=== PATIENT | female | born 1950 | race Caucasian/White ===

== ENCOUNTER → 2019-05-04 04:00 | Outpatient (REF) | payer MEDICARE, SELFPAY ==
[2019-05-04 10:02] LABS: Hematocrit 38.3 % (37-47); Hemoglobin 11.1 g/dL (12.0-15.0); Mean Corpuscular Hgb 24.4 pg (27.0-32.0); Mean Corpuscular Volume 84.2 fL (81-99); Mean Platelet Vol. 9.3 fl (6.2-12.0); Platelet Count 270 K/mm3 (150-450); RBC Distribution Width CV 14.4 % (11.6-14.6); Red Blood Count 4.55 M/mm3 (4.2-5.4); White Blood Count 9.8 K/mm3 (4.4-11.0)
[2019-05-04 10:55] LABS: BUN 22 mg/dL (7-18); Creatinine, Serum 0.58 mg/dL (0.55-1.02); Glucose 66 mg/dL (74-106)
[2019-05-04 10:56] LABS: Anion Gap 0 (5-15); BUN/Creat Ratio 38.2 RATIO (10-20); Chloride 105 mmol/L (98-107); EST Glomerular Filtration Rate 110 mL/min (>60); Est Glom Filt Rate - Afr Amer 134 mL/min (>60); Potassium 3.8 mmol/L (3.5-5.1); Sodium Level 144 mmol/L (136-145)
== END ==
LOC: OLS.ACW400 04:00
PROVIDERS: Visit Provider Family Medicine
DX: J96.22 Acute and chronic respiratory failure with hypercapnia (principal)
CPT/HCPCS: 36415; 80048; 85027

== ENCOUNTER → 2019-05-06 05:00 | Outpatient (REF) | payer MEDICARE, SELFPAY ==
[2019-05-06 08:02] LABS: Hematocrit 43.4 % (37-47); Hemoglobin 12.4 g/dL (12.0-15.0); Mean Corp Hgb Conc 28.6 g/dL (32-36); Mean Corpuscular Hgb 24.3 pg (27.0-32.0); Mean Corpuscular Volume 84.9 fL (81-99); Mean Platelet Vol. 9.5 fl (6.2-12.0); Platelet Count 303 K/mm3 (150-450); RBC Distribution Width CV 14.7 % (11.6-14.6); RBC Distribution Width SD 45.1 fl (35.1-43.9); Red Blood Count 5.11 M/mm3 (4.2-5.4); White Blood Count 9.8 K/mm3 (4.4-11.0)
[2019-05-06 08:29] LABS: Valproic Acid (Depakene) Level 23 ug/mL (50-100)
[2019-05-06 08:31] LABS: Hemoglobin A1c 7.4 % (4.2-6.3)
[2019-05-06 08:48] LABS: Vitamin B12 700 pg/mL (211-911); Vitamin D,25 Hydroxy 33.5 ng/mL (29.95-100.01)
[2019-05-06 08:51] LABS: ALB/GLOB Ratio 0.6 RATIO (0.9-2.4); AST(SGOT) 18 U/L (15-37); Alanine Aminotransfer ALT/SGPT 46 U/L (13-56); Albumin, Serum 2.5 g/dL (3.2-5.0); Alkaline Phosphatase 90 U/L (45-117); Anion Gap 4 (5-15); BUN 21 mg/dL (7-18); BUN/Creat Ratio 31.8 RATIO (10-20); Calcium,Total 8.8 mg/dL (8.5-10.1); Chloride 102 mmol/L (98-107); Cholesterol 159 mg/dL (200); Creatinine, Serum 0.66 mg/dL (0.55-1.02); EST Glomerular Filtration Rate 94 mL/min (>60); Est Glom Filt Rate - Afr Amer 114 mL/min (>60); Globulin 4.2 g/dL (2.2-4.2); Glucose 75 mg/dL (74-106); High Density Lipoprotein 37 mg/dL; Potassium 4.2 mmol/L (3.5-5.1); Protein, Total 6.7 g/dL (6.4-8.2); Sodium Level 143 mmol/L (136-145); Thyroid Stim Hormone (TSH) 2.16 uIU/mL (0.358-3.74); Triglycerides 207 mg/dL; Very Low Density Lipoprotein 41 mg/dL (5-40)
== END ==
LOC: OLS.ACW400 05:00
PROVIDERS: Visit Provider Family Medicine
DX: J44.1 Chronic obstructive pulmonary disease with (acute) exacerbation (principal); J96.22 Acute and chronic respiratory failure with hypercapnia; J96.21 Acute and chronic respiratory failure with hypoxia; E11.9 Type 2 diabetes mellitus without complications; E55.9 Vitamin D deficiency, unspecified
CPT/HCPCS: 36415; 80053; 80061; 80164; 82306; 82607; 83036; 84443; 85027

== ENCOUNTER → 2019-06-25 05:00 | Outpatient (REF) | payer MEDICARE, SELFPAY ==
[2019-06-25 08:59] LABS: Hematocrit 41.9 % (37-47); Hemoglobin 12.1 g/dL (12.0-15.0); Mean Corp Hgb Conc 28.9 g/dL (32-36); Mean Corpuscular Volume 83.1 fL (81-99); Mean Platelet Vol. 9.6 fl (6.2-12.0); Platelet Count 292 K/mm3 (150-450); RBC Distribution Width CV 16.6 % (11.6-14.6); RBC Distribution Width SD 49.6 fl (35.1-43.9); Red Blood Count 5.04 M/mm3 (4.2-5.4); White Blood Count 8.6 K/mm3 (4.4-11.0)
[2019-06-25 09:11] LABS: Anion Gap 4 (5-15); BUN 20 mg/dL (7-18); BUN/Creat Ratio 28.4 RATIO (10-20); Calcium,Total 9.3 mg/dL (8.5-10.1); Chloride 104 mmol/L (98-107); EST Glomerular Filtration Rate 88 mL/min (>60); Est Glom Filt Rate - Afr Amer 106 mL/min (>60); Glucose 113 mg/dL (74-106); Potassium 4.3 mmol/L (3.5-5.1); Sodium Level 143 mmol/L (136-145)
[2019-06-25 09:24] LABS: Hemoglobin A1c 7.2 % (4.2-6.3)
[2019-06-25 09:25] LABS: Valproic Acid (Depakene) Level 27 ug/mL (50-100)
[2019-06-25 10:21] LABS: Vitamin B12 801 pg/mL (211-911)
[2019-06-27 08:06] LABS: Vitamin D,25 Hydroxy 46.1 ng/mL
== END ==
LOC: OLS.ACW400 05:00
PROVIDERS: Visit Provider Family Medicine
DX: E11.9 Type 2 diabetes mellitus without complications (principal); F31.9 Bipolar disorder, unspecified; D51.9 Vitamin B12 deficiency anemia, unspecified; E55.9 Vitamin D deficiency, unspecified
CPT/HCPCS: 36415; 80048; 80164; 82306; 82607; 83036; 85027

== ENCOUNTER → 2019-09-25 05:00 | Outpatient (REF) | payer MEDICARE, SELFPAY ==
[2019-09-25 10:21] LABS: Hematocrit 43.6 % (37-47); Hemoglobin 13.3 g/dL (12.0-15.0); Mean Corp Hgb Conc 30.5 g/dL (32-36); Mean Corpuscular Hgb 26.9 pg (27.0-32.0); Mean Corpuscular Volume 88.3 fL (81-99); Mean Platelet Vol. 9.2 fl (6.2-12.0); Platelet Count 260 K/mm3 (150-450); RBC Distribution Width CV 14.5 % (11.6-14.6); RBC Distribution Width SD 46.4 fl (35.1-43.9); Red Blood Count 4.94 M/mm3 (4.2-5.4); White Blood Count 8.1 K/mm3 (4.4-11.0)
[2019-09-25 10:23] LABS: Valproic Acid (Depakene) Level 35 ug/mL (50-100)
[2019-09-25 10:34] LABS: ALB/GLOB Ratio 0.7 RATIO (0.9-2.4); AST(SGOT) 14 U/L (15-37); Alanine Aminotransfer ALT/SGPT 21 U/L (13-56); Alkaline Phosphatase 116 U/L (45-117); Anion Gap 7 (5-15); BUN 17 mg/dL (7-18); BUN/Creat Ratio 23.6 RATIO (10-20); Calcium,Total 9.2 mg/dL (8.5-10.1); Chloride 100 mmol/L (98-107); Creatinine, Serum 0.72 mg/dL (0.55-1.02); EST Glomerular Filtration Rate 85 mL/min (>60); Est Glom Filt Rate - Afr Amer 103 mL/min (>60); Globulin 4.2 g/dL (2.2-4.2); Glucose 101 mg/dL (74-106); Potassium 4.1 mmol/L (3.5-5.1); Protein, Total 7.2 g/dL (6.4-8.2); Sodium Level 143 mmol/L (136-145)
[2019-09-25 10:35] LABS: Vitamin B12 711 pg/mL (211-911); Vitamin D,25 Hydroxy 37.5 ng/mL
[2019-09-25 10:40] LABS: Hemoglobin A1c 6.3 % (3.8-5.6)
== END ==
LOC: OLS.ACW100 05:00
PROVIDERS: Referring Provider Family Medicine; Visit Provider Family Medicine
DX: J44.1 Chronic obstructive pulmonary disease with (acute) exacerbation (principal); J96.22 Acute and chronic respiratory failure with hypercapnia; J96.21 Acute and chronic respiratory failure with hypoxia; E11.9 Type 2 diabetes mellitus without complications; I11.0 Hypertensive heart disease with heart failure; I50.30 Unspecified diastolic (congestive) heart failure; I48.0 Paroxysmal atrial fibrillation; E78.5 Hyperlipidemia, unspecified; E66.9 Obesity, unspecified; F41.9 Anxiety disorder, unspecified; F32.9 Major depressive disorder, single episode, unspecified; D51.9 Vitamin B12 deficiency anemia, unspecified; E55.9 Vitamin D deficiency, unspecified; G89.4 Chronic pain syndrome; G47.00 Insomnia, unspecified; K21.9 Gastro-esophageal reflux disease without esophagitis; I48.91 Unspecified atrial fibrillation; E87.2 Acidosis; E87.6 Hypokalemia; Z99.81 Dependence on supplemental oxygen
CPT/HCPCS: 36415; 80053; 80164; 82306; 82607; 83036; 85027

== ENCOUNTER → 2019-12-25 07:30 | Outpatient (REF) | payer MEDICARE, MEDICAID, SELFPAY ==
[2019-12-25 10:15] LABS: Hematocrit 39.1 % (37-47); Hemoglobin 12.1 g/dL (12.0-15.0); Mean Corp Hgb Conc 30.9 g/dL (32-36); Mean Corpuscular Hgb 27.3 pg (27.0-32.0); Mean Corpuscular Volume 88.3 fL (81-99); Mean Platelet Vol. 9.2 fl (6.2-12.0); Platelet Count 215 K/mm3 (150-450); RBC Distribution Width CV 14.5 % (11.6-14.6); RBC Distribution Width SD 45.8 fl (35.1-43.9); Red Blood Count 4.43 M/mm3 (4.2-5.4)
[2019-12-25 10:21] LABS: Valproic Acid (Depakene) Level 36 ug/mL (50-100)
[2019-12-25 10:31] LABS: ALB/GLOB Ratio 0.8 RATIO (0.9-2.4); AST(SGOT) 13 U/L (15-37); Alanine Aminotransfer ALT/SGPT 19 U/L (13-56); Albumin, Serum 2.8 g/dL (3.2-5.0); Alkaline Phosphatase 102 U/L (45-117); Anion Gap 3 (5-15); BUN 19 mg/dL (7-18); BUN/Creat Ratio 26.5 RATIO (10-20); Calcium,Total 9.1 mg/dL (8.5-10.1); Chloride 101 mmol/L (98-107); Cholesterol 182 mg/dL (200); Creatinine, Serum 0.72 mg/dL (0.55-1.02); EST Glomerular Filtration Rate 85 mL/min (>60); Est Glom Filt Rate - Afr Amer 103 mL/min (>60); Globulin 3.7 g/dL (2.2-4.2); Glucose 100 mg/dL (74-106); High Density Lipoprotein 36 mg/dL; Protein, Total 6.5 g/dL (6.4-8.2); Sodium Level 140 mmol/L (136-145); Thyroid Stim Hormone (TSH) 3.09 uIU/mL (0.358-3.74); Triglycerides 230 mg/dL; Very Low Density Lipoprotein 46 mg/dL (5-40); Vitamin B12 490 pg/mL (211-911); Vitamin D,25 Hydroxy 37.3 ng/mL
[2019-12-25 10:56] LABS: Hemoglobin A1c 6.4 % (3.8-5.6)
== END ==
LOC: OLS.ACW100 07:30
PROVIDERS: Visit Provider Family Medicine
DX: E55.9 Vitamin D deficiency, unspecified (principal); E78.5 Hyperlipidemia, unspecified; E66.9 Obesity, unspecified; F41.9 Anxiety disorder, unspecified; I10 Essential (primary) hypertension; D51.9 Vitamin B12 deficiency anemia, unspecified; F32.9 Major depressive disorder, single episode, unspecified; E11.9 Type 2 diabetes mellitus without complications
CPT/HCPCS: 36415; 80053; 80061; 80164; 82306; 82607; 83036; 84443; 85027

== ENCOUNTER → 2020-01-29 10:38 | Outpatient (REF) | payer MEDICARE, MEDICAID, SELFPAY | LOC: OLS.ACW100 10:38 | PROVIDERS: Visit Provider Family Medicine | DX: Z03.818 Encounter for observation for suspected exposure to other biological agents ruled out (principal) | CPT/HCPCS: 87635; U0003 ==

== ENCOUNTER → 2020-03-11 05:00 | Outpatient (REF) | payer MEDICARE, MEDICAID, SELFPAY ==
[2020-03-11 09:53] LABS: Uric Acid 7.6 mg/dL (2.6-6.0)
== END ==
LOC: OLS.ACW100 05:00
PROVIDERS: Referring Provider Family Medicine; Visit Provider Family Medicine
DX: U07.1 COVID-19 (principal); J44.1 Chronic obstructive pulmonary disease with (acute) exacerbation; J96.22 Acute and chronic respiratory failure with hypercapnia; J96.21 Acute and chronic respiratory failure with hypoxia
CPT/HCPCS: 36415; 84550

== ENCOUNTER → 2020-06-13 05:00 | Outpatient (REF) | payer MEDICARE, MEDICAID, SELFPAY ==
[2020-06-13 08:18] LABS: Valproic Acid (Depakene) Level 17 ug/mL (50-100)
[2020-06-13 08:25] LABS: Hemoglobin A1c 6.8 % (3.8-5.6)
== END ==
LOC: OLS.ACW100 05:00
PROVIDERS: Referring Provider Family Medicine; Visit Provider Family Medicine
DX: J44.1 Chronic obstructive pulmonary disease with (acute) exacerbation (principal); J96.22 Acute and chronic respiratory failure with hypercapnia; J96.21 Acute and chronic respiratory failure with hypoxia; E11.9 Type 2 diabetes mellitus without complications
CPT/HCPCS: 36415; 80164; 83036

== ENCOUNTER → 2020-06-24 07:45 | Outpatient (REF) | payer MEDICARE, MEDICAID, SELFPAY ==
[2020-06-24 09:32] LABS: Mean Corp Hgb Conc 31.6 g/dL (32-36); Mean Corpuscular Hgb 27.1 pg (27.0-32.0); Mean Platelet Vol. 8.8 fl (6.2-12.0); Platelet Count 220 K/mm3 (150-450); RBC Distribution Width CV 15.1 % (11.6-14.6); RBC Distribution Width SD 46.7 fl (35.1-43.9); Red Blood Count 4.42 M/mm3 (4.2-5.4); White Blood Count 8.6 K/mm3 (4.4-11.0)
[2020-06-24 09:45] LABS: ALB/GLOB Ratio 0.7 RATIO (0.9-2.4); AST(SGOT) 13 U/L (15-37); Alanine Aminotransfer ALT/SGPT 22 U/L (13-56); Albumin, Serum 2.9 g/dL (3.2-5.0); Alkaline Phosphatase 116 U/L (45-117); Anion Gap 6 (5-15); BUN 17 mg/dL (7-18); Calcium,Total 8.9 mg/dL (8.5-10.1); Chloride 104 mmol/L (98-107); Creatinine, Serum 0.74 mg/dL (0.55-1.02); EST Glomerular Filtration Rate 82 mL/min (>60); Est Glom Filt Rate - Afr Amer 100 mL/min (>60); Glucose 131 mg/dL (74-106); Potassium 4.2 mmol/L (3.5-5.1); Protein, Total 6.9 g/dL (6.4-8.2); Sodium Level 143 mmol/L (136-145)
[2020-06-24 09:46] LABS: Valproic Acid (Depakene) Level 14 ug/mL (50-100); Vitamin B12 922 pg/mL (211-911); Vitamin D,25 Hydroxy 49.4 ng/mL
[2020-06-24 10:06] LABS: Hemoglobin A1c 6.8 % (3.8-5.6)
== END ==
LOC: OLS.ACW100 07:45
PROVIDERS: Visit Provider Family Medicine
DX: J44.1 Chronic obstructive pulmonary disease with (acute) exacerbation (principal); J96.22 Acute and chronic respiratory failure with hypercapnia; J96.21 Acute and chronic respiratory failure with hypoxia; E11.9 Type 2 diabetes mellitus without complications; F31.9 Bipolar disorder, unspecified; D51.9 Vitamin B12 deficiency anemia, unspecified
CPT/HCPCS: 36415; 80053; 80164; 82306; 82607; 83036; 85027

== ENCOUNTER → 2020-09-26 04:00 | Outpatient (REF) | payer MEDICARE, MEDICAID, SELFPAY ==
[2020-09-26 09:03] LABS: Hematocrit 41.4 % (37-47); Hemoglobin 12.4 g/dL (12.0-15.0); Mean Corpuscular Hgb 26.2 pg (27.0-32.0); Mean Corpuscular Volume 87.3 fL (81-99); Mean Platelet Vol. 9.5 fl (6.2-12.0); Platelet Count 236 K/mm3 (150-450); RBC Distribution Width CV 14.7 % (11.6-14.6); RBC Distribution Width SD 46.9 fl (35.1-43.9); Red Blood Count 4.74 M/mm3 (4.2-5.4); White Blood Count 8.8 K/mm3 (4.4-11.0)
[2020-09-26 09:20] LABS: Vitamin B12 1417 pg/mL (211-911); Vitamin D,25 Hydroxy 52.4 ng/mL
[2020-09-26 09:24] LABS: ALB/GLOB Ratio 0.7 RATIO (0.9-2.4); AST(SGOT) 9 U/L (15-37); Alanine Aminotransfer ALT/SGPT 23 U/L (13-56); Albumin, Serum 2.7 g/dL (3.2-5.0); Alkaline Phosphatase 123 U/L (45-117); Anion Gap 4 (5-15); BUN 18 mg/dL (7-18); BUN/Creat Ratio 22.9 RATIO (10-20); Calcium,Total 9.1 mg/dL (8.5-10.1); Chloride 104 mmol/L (98-107); Creatinine, Serum 0.78 mg/dL (0.55-1.02); EST Glomerular Filtration Rate 77 mL/min (>60); Est Glom Filt Rate - Afr Amer 93 mL/min (>60); Globulin 3.8 g/dL (2.2-4.2); Glucose 124 mg/dL (74-106); Potassium 4.1 mmol/L (3.5-5.1); Protein, Total 6.5 g/dL (6.4-8.2); Sodium Level 144 mmol/L (136-145)
[2020-09-26 09:29] LABS: Valproic Acid (Depakene) Level 18 ug/mL (50-100)
[2020-09-26 09:35] LABS: Hemoglobin A1c 7.1 % (3.8-5.6)
== END ==
LOC: OLS.ACW100 04:00
PROVIDERS: Referring Provider Family Medicine; Visit Provider Family Medicine
DX: J44.1 Chronic obstructive pulmonary disease with (acute) exacerbation (principal); J96.22 Acute and chronic respiratory failure with hypercapnia; J96.21 Acute and chronic respiratory failure with hypoxia; E11.9 Type 2 diabetes mellitus without complications; E55.9 Vitamin D deficiency, unspecified
CPT/HCPCS: 36415; 80053; 80164; 82306; 82607; 83036; 85027

== ENCOUNTER → 2020-10-13 05:00 | Outpatient (REF) | payer MEDICARE, MEDICAID, SELFPAY ==
[2020-10-13 09:15] LABS: Iron 42 ug/dL (50-170); Iron Binding Capacity,Total 294 ug/dL (250-450)
== END ==
LOC: OLS.ACW100 05:00
PROVIDERS: Referring Provider Family Medicine; Visit Provider Family Medicine
DX: J44.1 Chronic obstructive pulmonary disease with (acute) exacerbation (principal); J96.22 Acute and chronic respiratory failure with hypercapnia; J96.21 Acute and chronic respiratory failure with hypoxia; E11.9 Type 2 diabetes mellitus without complications
CPT/HCPCS: 36415; 83540; 83550

== ENCOUNTER → 2020-10-14 10:00 | Outpatient (REF) | payer MEDICARE, MEDICAID, SELFPAY | LOC: OLS.ACW100 10:00 | PROVIDERS: Referring Provider Family Medicine; Visit Provider Family Medicine | DX: J44.1 Chronic obstructive pulmonary disease with (acute) exacerbation (principal); J96.22 Acute and chronic respiratory failure with hypercapnia; J96.21 Acute and chronic respiratory failure with hypoxia; E11.9 Type 2 diabetes mellitus without complications | CPT/HCPCS: 82274 ==

== ENCOUNTER → 2020-12-14 05:00 | Outpatient (REF) | payer MEDICARE, MEDICAID, SELFPAY ==
[2020-12-14 09:30] LABS: Cholesterol 164 mg/dL (200); High Density Lipoprotein 35 mg/dL; Triglycerides 207 mg/dL; Very Low Density Lipoprotein 41 mg/dL (5-40)
[2020-12-14 09:33] LABS: Vitamin B12 1496 pg/mL (211-911); Vitamin D,25 Hydroxy 49.3 ng/mL
[2020-12-14 09:38] LABS: Valproic Acid (Depakene) Level 18 ug/mL (50-100)
[2020-12-14 09:50] LABS: Hemoglobin A1c 7.2 % (3.8-5.6)
== END ==
LOC: OLS.ACW100 05:00
PROVIDERS: Visit Provider Family Medicine
DX: E78.5 Hyperlipidemia, unspecified (principal); E11.9 Type 2 diabetes mellitus without complications; I11.0 Hypertensive heart disease with heart failure; I50.30 Unspecified diastolic (congestive) heart failure; F31.9 Bipolar disorder, unspecified; E55.9 Vitamin D deficiency, unspecified
CPT/HCPCS: 36415; 80061; 80164; 82306; 82607; 83036

== ENCOUNTER → 2020-12-26 05:00 | Outpatient (REF) | payer MEDICARE, MEDICAID, SELFPAY ==
[2020-12-26 08:52] LABS: Hematocrit 39.4 % (37-47); Hemoglobin 11.7 g/dL (12.0-15.0); Mean Corp Hgb Conc 29.7 g/dL (32-36); Mean Corpuscular Hgb 26.1 pg (27.0-32.0); Mean Corpuscular Volume 87.9 fL (81-99); Mean Platelet Vol. 9.2 fl (6.2-12.0); Platelet Count 222 K/mm3 (150-450); RBC Distribution Width CV 15.7 % (11.6-14.6); RBC Distribution Width SD 49.9 fl (35.1-43.9); Red Blood Count 4.48 M/mm3 (4.2-5.4); White Blood Count 8.6 K/mm3 (4.4-11.0)
[2020-12-26 09:09] LABS: ALB/GLOB Ratio 0.6 RATIO (0.9-2.4); AST(SGOT) 14 U/L (15-37); Alanine Aminotransfer ALT/SGPT 24 U/L (13-56); Albumin, Serum 2.6 g/dL (3.2-5.0); Alkaline Phosphatase 110 U/L (45-117); Anion Gap 4 (5-15); BUN 18 mg/dL (7-18); BUN/Creat Ratio 27.1 RATIO (10-20); Calcium,Total 9.1 mg/dL (8.5-10.1); Chloride 101 mmol/L (98-107); Creatinine, Serum 0.66 mg/dL (0.55-1.02); EST Glomerular Filtration Rate 93 mL/min (>60); Est Glom Filt Rate - Afr Amer 113 mL/min (>60); Globulin 4.1 g/dL (2.2-4.2); Glucose 152 mg/dL (74-106); Protein, Total 6.7 g/dL (6.4-8.2); Sodium Level 142 mmol/L (136-145)
[2020-12-26 09:15] LABS: Hemoglobin A1c 7.3 % (3.8-5.6)
[2020-12-26 09:19] LABS: Valproic Acid (Depakene) Level 15 ug/mL (50-100)
[2020-12-26 09:23] LABS: Vitamin B12 969 pg/mL (211-911); Vitamin D,25 Hydroxy 57.1 ng/mL
== END ==
LOC: OLS.ACW100 05:00
PROVIDERS: Visit Provider Family Medicine
DX: J44.1 Chronic obstructive pulmonary disease with (acute) exacerbation (principal); J96.21 Acute and chronic respiratory failure with hypoxia; J96.22 Acute and chronic respiratory failure with hypercapnia; E11.9 Type 2 diabetes mellitus without complications; E55.9 Vitamin D deficiency, unspecified
CPT/HCPCS: 36415; 80053; 80164; 82306; 82607; 83036; 85027

== ENCOUNTER → 2021-02-09 05:00 | Outpatient (REF) | payer MEDICARE, MEDICAID, SELFPAY ==
[2021-02-09 09:04] LABS: BNP,B-Type NATRIURETIC PEPTIDE 6.6 pg/mL (0-100)
== END ==
LOC: OLS.ACW100 05:00
PROVIDERS: Visit Provider Family Medicine
DX: J44.1 Chronic obstructive pulmonary disease with (acute) exacerbation (principal); J96.22 Acute and chronic respiratory failure with hypercapnia; J96.21 Acute and chronic respiratory failure with hypoxia; E11.9 Type 2 diabetes mellitus without complications; I48.20 Chronic atrial fibrillation, unspecified; I50.9 Heart failure, unspecified
CPT/HCPCS: 36415; 83880

== ENCOUNTER → 2021-02-13 05:00 | Outpatient (REF) | payer MEDICARE, MEDICAID, SELFPAY ==
[2021-02-13 11:21] LABS: Valproic Acid (Depakene) Level 15 ug/mL (50-100)
== END ==
LOC: OLS.ACW100 05:00
PROVIDERS: Visit Provider Family Medicine
DX: E87.6 Hypokalemia (principal); I10 Essential (primary) hypertension; E11.9 Type 2 diabetes mellitus without complications; D51.9 Vitamin B12 deficiency anemia, unspecified; E55.9 Vitamin D deficiency, unspecified; M54.50 Low back pain, unspecified
CPT/HCPCS: 36415; 80164

== ENCOUNTER → 2021-02-22 05:00 | Outpatient (REF) | payer MEDICARE, MEDICAID, SELFPAY ==
[2021-02-22 08:03] LABS: Anion Gap 3 (5-15); BUN 17 mg/dL (7-18); BUN/Creat Ratio 21.5 RATIO (10-20); Calcium,Total 9.3 mg/dL (8.5-10.1); Chloride 100 mmol/L (98-107); Creatinine, Serum 0.79 mg/dL (0.55-1.02); EST Glomerular Filtration Rate 76 mL/min (>60); Est Glom Filt Rate - Afr Amer 92 mL/min (>60); Glucose 168 mg/dL (74-106); Potassium 4.1 mmol/L (3.5-5.1); Sodium Level 140 mmol/L (136-145)
== END ==
LOC: OLS.ACW100 05:00
PROVIDERS: Visit Provider Family Medicine
DX: I48.91 Unspecified atrial fibrillation (principal); I50.9 Heart failure, unspecified
CPT/HCPCS: 36415; 80048

== ENCOUNTER → 2021-03-27 04:00 | Outpatient (REF) | payer MEDICARE, MEDICAID, SELFPAY ==
[2021-03-27 07:58] LABS: Hematocrit 41.6 % (37-47); Hemoglobin 12.1 g/dL (12.0-15.0); Mean Corp Hgb Conc 29.1 g/dL (32-36); Mean Corpuscular Hgb 24.9 pg (27.0-32.0); Mean Corpuscular Volume 85.8 fL (81-99); Mean Platelet Vol. 9.7 fl (6.2-12.0); Platelet Count 198 K/mm3 (150-450); RBC Distribution Width CV 15.4 % (11.6-14.6); RBC Distribution Width SD 48.2 fl (35.1-43.9); Red Blood Count 4.85 M/mm3 (4.2-5.4); White Blood Count 8.4 K/mm3 (4.4-11.0)
[2021-03-27 08:11] LABS: Valproic Acid (Depakene) Level 18 ug/mL (50-100)
[2021-03-27 08:21] LABS: Hemoglobin A1c 7.9 % (3.8-5.6)
[2021-03-27 08:33] LABS: ALB/GLOB Ratio 0.6 RATIO (0.9-2.4); AST(SGOT) 15 U/L (15-37); Alanine Aminotransfer ALT/SGPT 24 U/L (13-56); Albumin, Serum 2.6 g/dL (3.2-5.0); Alkaline Phosphatase 107 U/L (45-117); Anion Gap 5 (5-15); BUN 16 mg/dL (7-18); BUN/Creat Ratio 18.9 RATIO (10-20); Calcium,Total 8.9 mg/dL (8.5-10.1); Chloride 103 mmol/L (98-107); Creatinine, Serum 0.85 mg/dL (0.55-1.02); EST Glomerular Filtration Rate 70 mL/min (>60); Est Glom Filt Rate - Afr Amer 85 mL/min (>60); Globulin 4.2 g/dL (2.2-4.2); Glucose 139 mg/dL (74-106); Potassium 4.2 mmol/L (3.5-5.1); Protein, Total 6.8 g/dL (6.4-8.2); Sodium Level 143 mmol/L (136-145)
[2021-03-27 09:00] LABS: Vitamin B12 622 pg/mL (211-911); Vitamin D,25 Hydroxy 42.2 ng/mL
== END ==
LOC: OLS.ACW100 04:00
PROVIDERS: Referring Provider Family Medicine; Visit Provider Family Medicine
DX: J44.1 Chronic obstructive pulmonary disease with (acute) exacerbation (principal); J96.22 Acute and chronic respiratory failure with hypercapnia; J96.21 Acute and chronic respiratory failure with hypoxia; E11.9 Type 2 diabetes mellitus without complications; E55.9 Vitamin D deficiency, unspecified; I10 Essential (primary) hypertension; G89.4 Chronic pain syndrome
CPT/HCPCS: 36415; 80053; 80164; 82306; 82607; 83036; 85027

== ENCOUNTER 2021-05-16 05:00 | Outpatient (REF) | payer MEDICARE, MEDICAID, SELFPAY ==
[2021-05-16 09:22] LABS: Valproic Acid (Depakene) Level 17 ug/mL (50-100)
== END 2021-05-16 23:59 | disposition home or self-care (01) ==
LOC: OLS.ACW100 05:00
PROVIDERS: Visit Provider Family Medicine
DX: J44.1 Chronic obstructive pulmonary disease with (acute) exacerbation (principal); J96.22 Acute and chronic respiratory failure with hypercapnia; J96.21 Acute and chronic respiratory failure with hypoxia; E11.9 Type 2 diabetes mellitus without complications
CPT/HCPCS: 36415; 80164

== ENCOUNTER 2021-06-13 05:00 | Outpatient (REF) | payer MEDICARE, MEDICAID, SELFPAY | END 2021-06-13 23:59 | disposition home or self-care (01) | LOC: OLS.ACW100 05:00 | PROVIDERS: Visit Provider Family Medicine | DX: J44.1 Chronic obstructive pulmonary disease with (acute) exacerbation (principal); J96.22 Acute and chronic respiratory failure with hypercapnia; J96.21 Acute and chronic respiratory failure with hypoxia; E11.9 Type 2 diabetes mellitus without complications | CPT/HCPCS: 36415; 83036 ==

== ENCOUNTER → 2021-06-24 | Outpatient (REF) | payer MEDICARE, MEDICAID, SELFPAY ==
[2021-06-24 09:30] LABS: Hematocrit 43.9 % (37-47); Hemoglobin 13.1 g/dL (12.0-15.0); Mean Corp Hgb Conc 29.8 g/dL (32-36); Mean Corpuscular Hgb 25.5 pg (27.0-32.0); Mean Corpuscular Volume 85.6 fL (81-99); Mean Platelet Vol. 9.3 fl (6.2-12.0); Platelet Count 278 K/mm3 (150-450); RBC Distribution Width CV 15.5 % (11.6-14.6); RBC Distribution Width SD 48.1 fl (35.1-43.9); Red Blood Count 5.13 M/mm3 (4.2-5.4); White Blood Count 11.1 K/mm3 (4.4-11.0)
[2021-06-24 09:44] LABS: Hemoglobin A1c 7.8 % (3.8-5.6)
[2021-06-24 09:46] LABS: ALB/GLOB Ratio 0.7 RATIO (0.9-2.4); AST(SGOT) 15 U/L (15-37); Alanine Aminotransfer ALT/SGPT 21 U/L (13-56); Alkaline Phosphatase 127 U/L (45-117); Anion Gap 5 (5-15); BUN 15 mg/dL (7-18); BUN/Creat Ratio 17.1 RATIO (10-20); Calcium,Total 9.9 mg/dL (8.5-10.1); Chloride 98 mmol/L (98-107); Creatinine, Serum 0.88 mg/dL (0.55-1.02); EST Glomerular Filtration Rate 68 mL/min (>60); Est Glom Filt Rate - Afr Amer 82 mL/min (>60); Globulin 4.5 g/dL (2.2-4.2); Glucose 183 mg/dL (74-106); Protein, Total 7.5 g/dL (6.4-8.2); Sodium Level 139 mmol/L (136-145)
[2021-06-24 09:48] LABS: Valproic Acid (Depakene) Level 19 ug/mL (50-100)
[2021-06-26 09:25] LABS: Vitamin B12 876 pg/mL (211-911); Vitamin D,25 Hydroxy 30.5 ng/mL
== END | disposition home or self-care (01) ==
LOC: OLS.ACW100 07:17
PROVIDERS: Referring Provider Family Medicine; Visit Provider Family Medicine
DX: I11.0 Hypertensive heart disease with heart failure (principal); J44.1 Chronic obstructive pulmonary disease with (acute) exacerbation; I50.30 Unspecified diastolic (congestive) heart failure; J96.22 Acute and chronic respiratory failure with hypercapnia; J96.21 Acute and chronic respiratory failure with hypoxia; I48.0 Paroxysmal atrial fibrillation; E11.9 Type 2 diabetes mellitus without complications; D51.9 Vitamin B12 deficiency anemia, unspecified; E55.9 Vitamin D deficiency, unspecified
CPT/HCPCS: 36415; 80053; 80164; 82306; 82607; 83036; 85027

== ENCOUNTER → 2021-08-14 | Outpatient (REF) | payer SELFPAY ==
[2021-08-14 11:11] LABS: Valproic Acid (Depakene) Level 17 ug/mL (50-100)
== END | disposition home or self-care (01) ==
LOC: OLS.ACW100 05:00
PROVIDERS: PCP Family Medicine; Referring Provider Family Medicine; Visit Provider Family Medicine
DX: J96.22 Acute and chronic respiratory failure with hypercapnia (principal); J44.1 Chronic obstructive pulmonary disease with (acute) exacerbation; J96.21 Acute and chronic respiratory failure with hypoxia; E11.9 Type 2 diabetes mellitus without complications
CPT/HCPCS: 36415; 80164

== ENCOUNTER → 2021-09-02 | Outpatient (REF) | payer MEDICARE, MEDICAID, SELFPAY ==
[2021-09-02 09:34] LABS: Microalbumin:Creatinine Ratio 11.6 mg/g CRE (<30 mg/g CRE)
== END | disposition home or self-care (01) ==
LOC: OLS.ACW100 04:00
PROVIDERS: PCP Family Medicine; Visit Provider Family Medicine
DX: J44.1 Chronic obstructive pulmonary disease with (acute) exacerbation (principal); J96.22 Acute and chronic respiratory failure with hypercapnia; J96.21 Acute and chronic respiratory failure with hypoxia; E11.9 Type 2 diabetes mellitus without complications
CPT/HCPCS: 82043; 82570

== ENCOUNTER → 2021-09-06 | Outpatient (REF) | payer MEDICARE, MEDICAID, SELFPAY | END | disposition home or self-care (01) | LOC: OLS.ACW100 07:32 | PROVIDERS: PCP Family Medicine; Referring Provider Family Medicine; Visit Provider Family Medicine | DX: J44.1 Chronic obstructive pulmonary disease with (acute) exacerbation (principal); J96.22 Acute and chronic respiratory failure with hypercapnia; J96.21 Acute and chronic respiratory failure with hypoxia; E11.9 Type 2 diabetes mellitus without complications | CPT/HCPCS: 82274 ==

== ENCOUNTER → 2021-11-08 | Outpatient (REF) | payer MEDICARE, MEDICAID, SELFPAY ==
[2021-11-08 08:41] LABS: Hematocrit 40.4 % (37-47); Hemoglobin 12.5 g/dL (12.0-15.0); Mean Corp Hgb Conc 30.9 g/dL (32-36); Mean Corpuscular Hgb 26.4 pg (27.0-32.0); Mean Corpuscular Volume 85.2 fL (81-99); Mean Platelet Vol. 9.3 fl (6.2-12.0); Platelet Count 227 K/mm3 (150-450); RBC Distribution Width CV 15.9 % (11.6-14.6); RBC Distribution Width SD 48.2 fl (35.1-43.9); Red Blood Count 4.74 M/mm3 (4.2-5.4); White Blood Count 8.6 K/mm3 (4.4-11.0)
[2021-11-08 08:56] LABS: ALB/GLOB Ratio 0.6 RATIO (0.9-2.4); AST(SGOT) 14 U/L (15-37); Alanine Aminotransfer ALT/SGPT 20 U/L (13-56); Albumin, Serum 2.6 g/dL (3.2-5.0); Alkaline Phosphatase 117 U/L (45-117); Anion Gap 4 (5-15); BUN 17 mg/dL (7-18); BUN/Creat Ratio 22.3 RATIO (10-20); Calcium,Total 9.6 mg/dL (8.5-10.1); Chloride 101 mmol/L (98-107); Creatinine, Serum 0.76 mg/dL (0.55-1.02); EST Glomerular Filtration Rate 79 mL/min (>60); Est Glom Filt Rate - Afr Amer 96 mL/min (>60); Glucose 154 mg/dL (74-106); Potassium 4.2 mmol/L (3.5-5.1); Protein, Total 6.6 g/dL (6.4-8.2); Sodium Level 139 mmol/L (136-145)
[2021-11-08 09:21] LABS: Hemoglobin A1c 7.5 % (3.8-5.6)
== END ==
LOC: OLS.ACW100 05:00
PROVIDERS: PCP Family Medicine; Visit Provider Family Medicine
DX: J44.1 Chronic obstructive pulmonary disease with (acute) exacerbation (principal); J96.22 Acute and chronic respiratory failure with hypercapnia; J96.21 Acute and chronic respiratory failure with hypoxia; E11.9 Type 2 diabetes mellitus without complications
CPT/HCPCS: 36415; 80053; 83036; 85027

== ENCOUNTER → 2021-12-14 | Outpatient (REF) | payer MEDICARE, MEDICAID, SELFPAY ==
[2021-12-14 10:20] LABS: Valproic Acid (Depakene) Level 17 ug/mL (50-100)
[2021-12-14 10:22] LABS: Vitamin B12 621 pg/mL (211-911); Vitamin D,25 Hydroxy 40.4 ng/mL
[2021-12-14 10:25] LABS: Cholesterol 156 mg/dL (200); High Density Lipoprotein 32 mg/dL; Triglycerides 206 mg/dL; Very Low Density Lipoprotein 41 mg/dL (5-40)
[2021-12-14 10:47] LABS: Hemoglobin A1c 7.5 % (3.8-5.6)
== END ==
LOC: OLS.ACW100 05:00
PROVIDERS: PCP Family Medicine; Visit Provider Family Medicine
DX: I50.30 Unspecified diastolic (congestive) heart failure (principal); I48.0 Paroxysmal atrial fibrillation; I11.0 Hypertensive heart disease with heart failure; E78.5 Hyperlipidemia, unspecified; F31.9 Bipolar disorder, unspecified; D51.9 Vitamin B12 deficiency anemia, unspecified; E55.9 Vitamin D deficiency, unspecified; J44.1 Chronic obstructive pulmonary disease with (acute) exacerbation; J96.22 Acute and chronic respiratory failure with hypercapnia; J96.21 Acute and chronic respiratory failure with hypoxia; E11.9 Type 2 diabetes mellitus without complications
CPT/HCPCS: 36415; 80061; 80164; 82306; 82607; 83036

== ENCOUNTER → 2021-12-25 | Outpatient (REF) | payer MEDICARE, MEDICAID, SELFPAY ==
[2021-12-25 08:22] LABS: Hematocrit 41.4 % (37-47); Hemoglobin 12.7 g/dL (12.0-15.0); Mean Corp Hgb Conc 30.7 g/dL (32-36); Mean Corpuscular Hgb 26.6 pg (27.0-32.0); Mean Corpuscular Volume 86.6 fL (81-99); Platelet Count 229 K/mm3 (150-450); RBC Distribution Width CV 15.4 % (11.6-14.6); RBC Distribution Width SD 48.5 fl (35.1-43.9); Red Blood Count 4.78 M/mm3 (4.2-5.4)
[2021-12-25 08:35] LABS: Valproic Acid (Depakene) Level 20 ug/mL (50-100)
[2021-12-25 08:40] LABS: ALB/GLOB Ratio 0.7 RATIO (0.9-2.4); AST(SGOT) 12 U/L (15-37); Alanine Aminotransfer ALT/SGPT 20 U/L (13-56); Albumin, Serum 2.9 g/dL (3.2-5.0); Alkaline Phosphatase 130 U/L (45-117); Anion Gap 7 (5-15); BUN 17 mg/dL (7-18); BUN/Creat Ratio 21.1 RATIO (10-20); Calcium,Total 9.5 mg/dL (8.5-10.1); Chloride 99 mmol/L (98-107); EST Glomerular Filtration Rate 75 mL/min (>60); Est Glom Filt Rate - Afr Amer 90 mL/min (>60); Globulin 4.3 g/dL (2.2-4.2); Glucose 156 mg/dL (74-106); Potassium 4.2 mmol/L (3.5-5.1); Protein, Total 7.2 g/dL (6.4-8.2); Sodium Level 142 mmol/L (136-145)
[2021-12-25 08:43] LABS: Vitamin B12 686 pg/mL (211-911); Vitamin D,25 Hydroxy 32.3 ng/mL
[2021-12-25 14:03] LABS: Hemoglobin A1c 7.2 % (3.8-5.6)
== END ==
LOC: OLS.ACW100 05:00
PROVIDERS: PCP Family Medicine
DX: J44.1 Chronic obstructive pulmonary disease with (acute) exacerbation (principal); E55.9 Vitamin D deficiency, unspecified; J96.22 Acute and chronic respiratory failure with hypercapnia; J96.21 Acute and chronic respiratory failure with hypoxia; E11.9 Type 2 diabetes mellitus without complications
CPT/HCPCS: 36415; 80053; 80164; 82306; 82607; 83036; 85027

== ENCOUNTER → 2022-03-26 | Outpatient (REF) | payer MEDICARE, MEDICAID, SELFPAY ==
[2022-03-26 09:59] LABS: Hematocrit 41.3 % (37-47); Hemoglobin 12.4 g/dL (12.0-15.0); Mean Corpuscular Hgb 26.2 pg (27.0-32.0); Mean Corpuscular Volume 87.3 fL (81-99); Mean Platelet Vol. 9.3 fl (6.2-12.0); Platelet Count 243 K/mm3 (150-450); RBC Distribution Width CV 15.2 % (11.6-14.6); RBC Distribution Width SD 48.1 fl (35.1-43.9); Red Blood Count 4.73 M/mm3 (4.2-5.4); White Blood Count 7.1 K/mm3 (4.4-11.0)
[2022-03-26 10:17] LABS: ALB/GLOB Ratio 0.7 RATIO (0.9-2.4); AST(SGOT) 13 U/L (15-37); Alanine Aminotransfer ALT/SGPT 22 U/L (13-56); Albumin, Serum 2.8 g/dL (3.2-5.0); Alkaline Phosphatase 99 U/L (45-117); Anion Gap 3 (5-15); BUN 18 mg/dL (7-18); BUN/Creat Ratio 23.1 RATIO (10-20); Calcium,Total 9.4 mg/dL (8.5-10.1); Chloride 106 mmol/L (98-107); Creatinine, Serum 0.78 mg/dL (0.55-1.02); EST Glomerular Filtration Rate 77 mL/min (>60); Est Glom Filt Rate - Afr Amer 93 mL/min (>60); Globulin 4.1 g/dL (2.2-4.2); Glucose 130 mg/dL (74-106); Potassium 4.2 mmol/L (3.5-5.1); Protein, Total 6.9 g/dL (6.4-8.2); Sodium Level 144 mmol/L (136-145)
[2022-03-26 10:21] LABS: Vitamin B12 682 pg/mL (211-911); Vitamin D,25 Hydroxy 31.6 ng/mL
[2022-03-26 10:28] LABS: Valproic Acid (Depakene) Level 14 ug/mL (50-100)
[2022-03-26 10:56] LABS: Hemoglobin A1c 7.2 % (3.8-5.6)
== END ==
LOC: OLS.ACW100 05:00
PROVIDERS: PCP Family Medicine; Visit Provider Family Medicine
DX: I11.0 Hypertensive heart disease with heart failure (principal); I50.30 Unspecified diastolic (congestive) heart failure; I48.0 Paroxysmal atrial fibrillation; D51.9 Vitamin B12 deficiency anemia, unspecified; E55.9 Vitamin D deficiency, unspecified
CPT/HCPCS: 36415; 80053; 80164; 82306; 82607; 83036; 85027

== ENCOUNTER → 2022-06-24 | Outpatient (REF) | payer MEDICARE, MEDICAID, SELFPAY ==
[2022-06-24 10:59] LABS: Hematocrit 42.7 % (37-47); Mean Corp Hgb Conc 30.4 g/dL (32-36); Mean Corpuscular Hgb 26.7 pg (27.0-32.0); Mean Corpuscular Volume 87.9 fL (81-99); Mean Platelet Vol. 9.3 fl (6.2-12.0); Platelet Count 247 K/mm3 (150-450); RBC Distribution Width CV 14.8 % (11.6-14.6); RBC Distribution Width SD 46.8 fl (35.1-43.9); Red Blood Count 4.86 M/mm3 (4.2-5.4); White Blood Count 9.1 K/mm3 (4.4-11.0)
[2022-06-24 11:07] LABS: Valproic Acid (Depakene) Level 17 ug/mL (50-100)
[2022-06-24 11:08] LABS: ALB/GLOB Ratio 0.7 RATIO (0.9-2.4); AST(SGOT) 14 U/L (15-37); Alanine Aminotransfer ALT/SGPT 19 U/L (13-56); Albumin, Serum 2.9 g/dL (3.2-5.0); Alkaline Phosphatase 113 U/L (45-117); Anion Gap 7 (5-15); BUN 17 mg/dL (7-18); BUN/Creat Ratio 21.2 RATIO (10-20); Calcium,Total 9.6 mg/dL (8.5-10.1); Chloride 102 mmol/L (98-107); EST Glomerular Filtration Rate 75 mL/min (>60); Est Glom Filt Rate - Afr Amer 90 mL/min (>60); Globulin 4.3 g/dL (2.2-4.2); Glucose 206 mg/dL (74-106); Potassium 4.4 mmol/L (3.5-5.1); Protein, Total 7.2 g/dL (6.4-8.2); Sodium Level 144 mmol/L (136-145)
[2022-06-24 11:35] LABS: Hemoglobin A1c 6.7 % (3.8-5.6)
[2022-06-25 09:20] LABS: Vitamin B12 602 pg/mL (211-911); Vitamin D,25 Hydroxy 44.4 ng/mL
== END ==
LOC: OLS.ACW100 09:45
PROVIDERS: PCP Family Medicine; Visit Provider Family Medicine
DX: J44.1 Chronic obstructive pulmonary disease with (acute) exacerbation (principal); J96.21 Acute and chronic respiratory failure with hypoxia; E55.9 Vitamin D deficiency, unspecified; E11.9 Type 2 diabetes mellitus without complications
CPT/HCPCS: 36415; 80053; 80164; 82306; 82607; 83036; 85027

== ENCOUNTER → 2022-09-20 | Outpatient (REF) | payer MEDICARE, MEDICAID, SELFPAY ==
[2022-09-20 08:46] LABS: AST(SGOT) 16 U/L (15-37); Alanine Aminotransfer ALT/SGPT 21 U/L (13-56); Albumin, Serum 2.9 g/dL (3.2-5.0); Alkaline Phosphatase 105 U/L (45-117); Anion Gap 5 (5-15); BUN 19 mg/dL (7-18); BUN/Creat Ratio 23.5 RATIO (10-20); Bilirubin, Direct 0.07 mg/dL (0.00-0.30); Calcium,Total 9.4 mg/dL (8.5-10.1); Chloride 103 mmol/L (98-107); Cholesterol 172 mg/dL (200); Creatinine, Serum 0.81 mg/dL (0.55-1.02); EST Glomerular Filtration Rate 74 mL/min (>60); Est Glom Filt Rate - Afr Amer 90 mL/min (>60); Globulin 4.3 g/dL (2.2-4.2); Glucose 99 mg/dL (74-106); High Density Lipoprotein 34 mg/dL; Potassium 4.2 mmol/L (3.5-5.1); Protein, Total 7.2 g/dL (6.4-8.2); Sodium Level 142 mmol/L (136-145); Triglycerides 224 mg/dL; Very Low Density Lipoprotein 45 mg/dL (5-40)
[2022-09-20 09:06] LABS: Hemoglobin A1c 6.7 % (3.8-5.6)
== END ==
LOC: OLS.ACW100 05:00
PROVIDERS: PCP Family Medicine; Visit Provider Family Medicine
DX: J44.1 Chronic obstructive pulmonary disease with (acute) exacerbation (principal); J96.22 Acute and chronic respiratory failure with hypercapnia; J96.21 Acute and chronic respiratory failure with hypoxia; E11.9 Type 2 diabetes mellitus without complications
CPT/HCPCS: 36415; 80048; 80061; 80076; 83036

== ENCOUNTER → 2022-09-24 | Outpatient (REF) | payer MEDICARE, MEDICAID, SELFPAY ==
[2022-09-24 09:01] LABS: Hematocrit 39.6 % (37-47); Hemoglobin 12.1 g/dL (12.0-15.0); Mean Corp Hgb Conc 30.6 g/dL (32-36); Mean Corpuscular Hgb 26.8 pg (27.0-32.0); Mean Corpuscular Volume 87.8 fL (81-99); Mean Platelet Vol. 9.4 fl (6.2-12.0); Platelet Count 232 K/mm3 (150-450); RBC Distribution Width CV 14.6 % (11.6-14.6); RBC Distribution Width SD 46.9 fl (35.1-43.9); Red Blood Count 4.51 M/mm3 (4.2-5.4); White Blood Count 8.3 K/mm3 (4.4-11.0)
[2022-09-24 09:18] LABS: Valproic Acid (Depakene) Level 22 ug/mL (50-100)
[2022-09-24 09:19] LABS: ALB/GLOB Ratio 0.7 RATIO (0.9-2.4); AST(SGOT) 11 U/L (15-37); Alanine Aminotransfer ALT/SGPT 18 U/L (13-56); Albumin, Serum 2.8 g/dL (3.2-5.0); Alkaline Phosphatase 106 U/L (45-117); Anion Gap 4 (5-15); BUN 22 mg/dL (7-18); BUN/Creat Ratio 27.9 RATIO (10-20); Calcium,Total 9.1 mg/dL (8.5-10.1); Chloride 104 mmol/L (98-107); Creatinine, Serum 0.79 mg/dL (0.55-1.02); EST Glomerular Filtration Rate 76 mL/min (>60); Est Glom Filt Rate - Afr Amer 92 mL/min (>60); Globulin 3.9 g/dL (2.2-4.2); Glucose 104 mg/dL (74-106); Potassium 4.1 mmol/L (3.5-5.1); Protein, Total 6.7 g/dL (6.4-8.2); Sodium Level 142 mmol/L (136-145)
[2022-09-24 09:35] LABS: Vitamin B12 493 pg/mL (211-911)
[2022-09-24 09:47] LABS: Hemoglobin A1c 6.6 % (3.8-5.6)
== END ==
LOC: OLS.ACW100 05:00
PROVIDERS: PCP Family Medicine; Visit Provider Family Medicine
DX: E11.9 Type 2 diabetes mellitus without complications (principal); J44.1 Chronic obstructive pulmonary disease with (acute) exacerbation; E55.9 Vitamin D deficiency, unspecified; D51.9 Vitamin B12 deficiency anemia, unspecified; I10 Essential (primary) hypertension; F31.9 Bipolar disorder, unspecified; G89.4 Chronic pain syndrome; J96.21 Acute and chronic respiratory failure with hypoxia
CPT/HCPCS: 36415; 80053; 80164; 82306; 82607; 83036; 85027

== ENCOUNTER → 2022-12-14 | Outpatient (REF) | payer MEDICARE, MEDICAID, SELFPAY ==
[2022-12-14 11:35] LABS: Valproic Acid (Depakene) Level 6 ug/mL (50-100); Vitamin B12 476 pg/mL (211-911); Vitamin D,25 Hydroxy 43.8 ng/mL
[2022-12-14 11:38] LABS: Cholesterol 167 mg/dL (200); High Density Lipoprotein 31 mg/dL; Triglycerides 190 mg/dL; Very Low Density Lipoprotein 38 mg/dL (5-40)
[2022-12-14 12:03] LABS: Hemoglobin A1c 6.4 % (3.8-5.6)
== END ==
LOC: OLS.ACW100 05:00
PROVIDERS: PCP Family Medicine; Visit Provider Family Medicine
DX: E11.9 Type 2 diabetes mellitus without complications (principal); E87.6 Hypokalemia; E55.9 Vitamin D deficiency, unspecified; E78.5 Hyperlipidemia, unspecified
CPT/HCPCS: 36415; 80061; 80164; 82306; 82607; 83036

== ENCOUNTER → 2022-12-25 | Outpatient (REF) | payer MEDICARE, MEDICAID, SELFPAY ==
[2022-12-25 09:45] LABS: Hematocrit 38.3 % (37-47); Hemoglobin 11.5 g/dL (12.0-15.0); Mean Corpuscular Volume 86.5 fL (81-99); Mean Platelet Vol. 9.3 fl (6.2-12.0); Platelet Count 243 K/mm3 (150-450); RBC Distribution Width CV 14.6 % (11.6-14.6); RBC Distribution Width SD 45.6 fl (35.1-43.9); Red Blood Count 4.43 M/mm3 (4.2-5.4); White Blood Count 8.6 K/mm3 (4.4-11.0)
[2022-12-25 10:00] LABS: Vitamin B12 334 pg/mL (211-911); Vitamin D,25 Hydroxy 40.2 ng/mL
[2022-12-25 10:03] LABS: Hemoglobin A1c 6.2 % (3.8-5.6)
[2022-12-25 10:06] LABS: ALB/GLOB Ratio 0.7 RATIO (0.9-2.4); AST(SGOT) 10 U/L (15-37); Alanine Aminotransfer ALT/SGPT 17 U/L (13-56); Albumin, Serum 2.7 g/dL (3.2-5.0); Alkaline Phosphatase 97 U/L (45-117); Anion Gap 4 (5-15); BUN 16 mg/dL (7-18); BUN/Creat Ratio 23.3 RATIO (10-20); Calcium,Total 9.2 mg/dL (8.5-10.1); Chloride 102 mmol/L (98-107); Creatinine, Serum 0.69 mg/dL (0.55-1.02); EST Glomerular Filtration Rate 89 mL/min (>60); Est Glom Filt Rate - Afr Amer 108 mL/min (>60); Globulin 3.8 g/dL (2.2-4.2); Glucose 104 mg/dL (74-106); Potassium 3.8 mmol/L (3.5-5.1); Protein, Total 6.5 g/dL (6.4-8.2); Sodium Level 141 mmol/L (136-145)
[2022-12-25 10:07] LABS: Valproic Acid (Depakene) Level 8 ug/mL (50-100)
== END ==
LOC: OLS.ACW100 05:00
PROVIDERS: PCP Family Medicine; Visit Provider Family Medicine
DX: J44.1 Chronic obstructive pulmonary disease with (acute) exacerbation (principal); E55.9 Vitamin D deficiency, unspecified; J96.21 Acute and chronic respiratory failure with hypoxia; E11.9 Type 2 diabetes mellitus without complications
CPT/HCPCS: 36415; 80053; 80164; 82306; 82607; 83036; 85027

== ENCOUNTER → 2023-03-26 | Outpatient (REF) | payer MEDICARE, MEDICAID, SELFPAY ==
--- OUTSIDE RECORDS SUMMARY | 2023-03-26 04:41 | XMS RPT_ITS | CCD ---
Author Name Unknown Address [address] [place] [address] Organization [facility] Care Team Providers Care Title Department Manager Name Role Phone Jadiel DEL TORO, Colin Unavailable Jadiel DEL TORO, Colin Unavailable Ned GAVIRAI, Apple Sebastian Unavailable Ag Hurst MD Primary Care Provider [phone] Unavailable Primary Care Provider Unavailabl e Jadiel DEL TORO, Colin Unavailable Jadiel DEL TORO, Colin Unavailable Ned GAVIRIA, Apple Sebastian Unavailable Ag Hurst MD Primary Care Provider Jadiel DEL TORO, Colin Unavailable Jadiel DEL TORO, Colin Unavailable Ned GAVIRIA, Apple Sebastian Unavailable Ag Hurst MD Primary Care Provider [phone] Allergies Allergy Classification Reported Allergen(s) Allergy Type Date of Onset Reaction(s) Facility (11 sources) Acetaminophen / traMADol Drug Allergy 5 [facility] (11 sources) Amitriptyline Drug Allergy 5 [facility] (11 sources) Cephalexin Drug Allergy 8 Diarrhea [facility] (11 sources) gabapentin Drug Allergy 5 Unknown [facility] (11 sources) gatifloxacin Drug Allergy 5 [facility] (11 sources) guaiFENesin / Phenylephrine Drug Allergy 5 [facility] (11 sources) HYDROmorphone Drug Allergy 0 Unknown [facility] (11 sources) metFORMIN Drug Allergy 9 Other: See Comments [facility] Work Phone: (11 sources) Methionine Drug Allergy 9 Unknown [facility] Work Phone: (11 sources) Morphine Drug Allergy 5 [facility] (11 sources) oxyCODONE Drug Allergy 5 [facility] (11 sources) Propoxyphene Drug Allergy 0 Unknown [facility] (11 sources) Thimerosal Drug Allergy 1 Unknown [facility] (11 sources) MRI [Other] Propensity to adverse reactions 5 Other: See Comments [facility] Work Phone: (11 sources) Propoxyphene N-Acetaminophen Drug Allergy 9 Unknown [facility] Work Phone: Medications Completed/Discontinued Medications Medication Drug Class(es) Dates Sig (Normalized) Sig (Original) acetaminophen 325 mg oral tablet (11 sources) take 2 tablets by mouth every six hours as needed acetaminophen (TYLENOL) 325 mg tablet Take 650 mg by mouth every 6 hours as needed for Pain or Fever (>100.4F). 0 Active Problems Active Problems Problem Classification Problem Date Documented Da te Episodic/Chronic Cardiac dysrhythmias (11 sources) Atrial fibrillation with rapid ventricular response; Translations: [Unspecified atrial fibrillation] Onset: 12-04-2018 01-13-2019 Chronic Chronic obstructive pulmonary disease and bronchiectasis (20 sources) Chronic obstructive lung disease; Translations: [Chronic obstructive pulmonary disease, unspecified] Onset: 11-17-2018 07-28-2020 Chronic Congestive heart failure; nonhypertensive (11 sources) Chronic systolic heart failure; Translations: [Chronic systolic (congestive) heart failure] Onset: 12-25-2018 07-28-2020 Chronic Diabetes mellitus without complication (11 sources) Type 2 diabetes mellitus without complication; Translations: [Type 2 diabetes mellitus without complications] Onset: 09-13-2018 07-28-2020 Chronic Disorders of lipid metabolism (11 sources) Mixed hyperlipidemia; Translations: [Mixed hyperlipidemia] Onset: 11-26-2018 01-13-2019 Chronic Essential hypertension (11 sources) Essential hypertension; Translations: [Essential (primary) hypertension] Onset: 10-21-2008 07-28-2020 Chronic Mood disorders (11 sources) Bipolar disorder; Translations: [Bipolar disorder, unspecified] Onset: 10-28-2018 01-13-2019 Chronic Other nervous system disorders (11 sources) Chronic pain; Translations: [Other chronic pain] Onset: 12-12-2018 12-12-2018 Chronic Other nutritional; endocrine; and metabolic disorders (11 sources) Body mass index 40+ - severely obese; Translations: [Morbid (severe) obesity due to excess calories] Onset: 09-15-2018 12-23-2018 Chronic Respiratory failure; insufficiency; arrest (adult) (11 sources) Acute on chronic hypoxemic and hypercapnic respiratory failure; Translations: [Acute and chronic respiratory failure with hypoxia] Onset: 01-27-2015 01-13-2019 Chronic Spondylosis; intervertebral disc disorders; other back problems (20 sources) Lumbosacral spondylosis without myelopathy; Translations: [Spondylosis without myelopathy or radiculopathy, lumbosacral region] Onset: 09-29-2004 10-28-2018 Chronic Past or Other Problems Problem Classification Problem Date Documented Da te Episodic/Chronic Nonspecific chest pain (11 sources) Chest pain; Translations: [Chest pain, unspecified] Onset: 11-25-2018 07-28-2020 Episodic Pneumonia (except that caused by tuberculosis or sexually transmitted disease) (11 sources) Pneumonia; Translations: [Pneumonia, unspecified organism] Onset: 01-13-2019 01-13-2019 Episodic Results Test Name Value Interpretation Reference Range Facil ity Encounters Encounter Date Encounter Type Care Provider Facility Start: 06-25-2022 Telephone encounter gA Hurst MD Work Phone: Family Practice Procedures Date Procedure Procedure Detail Performing Clinician Start: 03-27-2022 BMP - EXTERNAL [facility] Prov ider Start: 03-27-2022 CBC panel - Blood by Automated count [facility] Provider Start: 08-14-2018 Adult depression scr eening assessment Ag Hurst MD Work Phone: Start: 11-04-2013 Mammography Ag abdi MD Work Phone: Plan of Treatment Date Care Activity Detail Author Start: 04-15-2022 ADVANCE DIRECTIVE DISCUSSION ADVANCE DIRECTIVE DISCUSSION [facility] Start: 04-15-2022 DEPRESSION ASSESSMENT DEPRESSION ASSESSMENT [facility] Start: 12-14-2021 Influenza vaccination [facility] Start: 07-29-2021 Hepatitis B surface antibody level LDL CHOLESTEROL [facility] Start: 04-15-2021 ADVANCE DIRECTIVE DISCUSSION ADVANCE DIRECTIVE DISCUSSION [facility] Start: 04-15-2021 DEPRESSION ASSESSMENT DEPRESSION ASSESSMENT [facility] Start: 10-09-2020 COVID-19 Vaccine (3 - Booster for Pfizer series) COVID-19 Vaccine (3 - Booster for Pfizer series) [facility] Start: 08-15-2019 Adult depression screening assessment DEPRESSION SCREENING [facility] Start: 08-04-2018 Hemoglobin A1c/Hemoglobin.total in Blood HBA1C [facility] Start: 2015 Pneumococcal 65+ years Vaccine (1 - PCV) Pneumococcal 65+ years Vaccine (1 - PCV) [facility] Start: 2015 PNEUMOCOCCAL: 65+ (1 - PCV) PNEUMOCOCCAL: 65+ (1 - PCV) [facility] Start: 2015 PNEUMOVAX AGE 65 AND OVER WITH 5YR LOOKBACK (#1) PNEUMOVAX AGE 65 AND OVER WITH 5YR LOOKBACK (#1) [facility] Start: 11-04-2014 Mammography MAMMOGRAM [facility] Start: 10-16-2012 Shingles vaccine (2 of 3) Shingles vaccine (2 of 3) [facility] Start: 10-16-2012 SHINGRIX VACCINE (2 of 3) SHINGRIX VACCINE (2 of 3) [facility] Start: 2005 Screening for osteoporosis DEXA (modify frequency per FRAX score) [facility] Start: 01-11-2000 Screening for malignant neoplasm of breast Breast cancer screen [facility] Start: 09-01-1999 DTaP/Tdap/Td vaccine (1 - Tdap) DTaP/Tdap/Td vaccine (1 - Tdap) [facility] Start: 09-01-1999 Urine microalbumin profile DTAP,TDAP,TD (1 - Tdap) [facility] Start: 1995 COLOGUARD (FIT-DNA) COLOGUARD (FIT-DNA) [facility] Start: 1995 Colonoscopy COLONOSCOPY [facility] Start: 1995 COLORECTAL CANCER SCREENING COLORECTAL CANCER SCREENING [facility] Start: [address] COLONOGRAPHY [facility] Start: 1995 FECAL OCCULT BLOOD FECAL OCCULT BLOOD [facility] Start: 1995 Screening for malignant neoplasm of colon [facility] Start: 1995 SIGMOIDOSCOPY SIGMOIDOSCOPY [facility] Start: 1990 Lipid panel Lipids [facility] Start: 01-11-1980 Zoledronic acid therapy ALPHA-1 ANTITRYPSIN DEFICIENCY SCREENING [facility] Start: 01-11-1968 ANNUAL PCP TEAM CHRONIC DISEASE VISIT ANNUAL PCP TEAM CHRONIC DISEASE VISIT [facility] Start: 01-11-1968 BP CONTROLLED (<130/80) BP CONTROLLED (<130/80) [facility] Start: 01-11-1968 HEPATITIS C SCREENING HEPATITIS C SCREENING [facility] Start: 01-11-1968 Hepatitis C screening Hepatitis C screen [facility] Start: 1962 Depression Screen Depression Screen [facility] Start: 01-11-1960 3 comp foot exam completed DIABETIC FOOT EXAM [facility] Start: 01-11-1960 Hepatitis B screening URINE ALBUMIN:CREATININE RATIO [facility] Start: 01-11-1960 Hepatitis C antibody, confirmatory test DILATED RETINAL EXAM [facility] Start: 01-11-1956 PNEUMOCOCCAL: 65+ (1 - PCV) PNEUMOCOCCAL: 65+ (1 - PCV) [facility] Start: 1955 COVID-19 VACCINE (#1) COVID-19 VACCINE (#1) [facility] Start: 1955 COVID-19 VACCINE (1) COVID-19 VACCINE (1) [facility] Start: 1950 COVID-19 VACCINE (#1) COVID-19 VACCINE (#1) [facility] End: 10-18-2021 Screening digital breast tomosynthesis [facility] Work Phone: Immunizations Immunization Date Immunization Notes Care Provider Fa cility 06-27-2018 influenza, high dose seasonal, preservative-free Ag Hurst MD Work Phone: [facility] 02-07-2016 influenza, high dose seasonal, preservative-free Ag Hurst MD Work Phone: [facility] 08-21-2012 zoster vaccine, live Ag Hurst MD Work Phone: [facility] 01-01-2011 influenza virus vacc ine, whole virus Ag Hurst MD Work Phone: [facility] 04-11-2010 influenza virus vacc ine, unspecified formulation Ag Hurst MD Work Phone: [facility] 01-03-2009 influenza virus vacc ine, whole virus Ag Hurst MD Work Phone: [facility] 01-22-2007 influenza virus vacc ine, whole virus Ag Hurst MD Work Phone: [facility] 08-31-1999 TD(adult) unspecifie d formulation Ag Hurst MD Work Phone: [facility] Payers Date Payer Category Payer Unknown [facility] [place] [facility] [id number] 2019-Present [phone] [address] [place] [address] O [id number] 2019 Unknown [facility] [id number] 2019-Present [phone] [address] [place] [address] [facility] [place] [id number] 2019 Medicaid [place] [employer] [place] [employer] [id number] 2019-Present [phone] [place] [id number] Medicaid [id number] 2019 Medicaid [place] [employer] [place] [employer] [id number] 2019-Present [phone] [place] [id number] Medicaid [id number] Social History Date Type Detail Facility Start: 01-16-2018 End: 10-03-2018 Tobacco smoking status NHIS Ex-smoker [facility] Start: 1967 End: 10-03-2016 History of tobacco use Current smoker [facility] Start: 1967 End: 10-03-2016 History of tobacco use Cigarette Smoker [facility] Start: 01-16-2018 End: 10-03-2018 Cigarettes smoked current (pack per day) - Reported 1 [facility] Start: 01-16-2018 End: 10-03-2018 Tobacco use and exposure Smokeless tobacco non-user [facility] Start: 07-28-2020 Alcohol intake 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) [facility] Start: 08-14-2018 History SDOH Alcohol Frequency 1 [facility] Start: 08-14-2018 History SDOH Social Connections Phone 3 [facility] Start: 08-14-2018 History SDOH Social Connections Get Together 2 [facility] Start: 08-14-2018 History SDOH Social Connections Living 4 [facility] Start: 08-14-2018 History SDOH Physica l Activity DPW 7 [facility] Start: 08-14-2018 History SDOH Physica l Activity MPS 6 [facility] Start: 10-03-2018 Tobacco Comment Years of ETS f rom mother in childhood home and spouse in marital home. [facility] Start: 1950 Sex Assigned At Not on file C [facility] Tobacco smoking stat [facility] Tobacco smoking consumption unknown [facility] Work Phone: Clinical Notes 12-06-2018 to 06-25-2022 Telephone Encounter - Elizabeth Ross - 06/25/2022 2:03 PM EDTTelephone Encounter - Jenny Cavazos Pss - 05/28/2022 2:38 PM ESTTelephone Encounter - Elizabeth Ross - 04/19/2022 5:17 PM EST Note Date & Type Note Facility 06-25-2022 Miscellaneous Notes Received lab results 06/24/22 from [facility], [facility] requesting review if pt needs any more labs. Placed in provider's inbox for review. Route to MA scanning/fax documented in this encounter [facility] 05-28-2022 Miscellaneous Notes Silvia has chosen to use an attending/ PCP doctor at her current living situation. She will be removed from Dr. Hurst's care. documented in this encounter [facility] 04-19-2022 Miscellaneous Notes Called [facility] and spoke with [address] [place] [address] nurse Megan, informed of Ronit Lou recommendation. No further action needed at this time. She may continue the medication if tolerating. Stop and notify us if any adverse effects. Ronit Lou APRN.LACY [facility] called [facility] Doctors okay for Silvia to keep taking her medication Cefdinir. She is allergic to Keflex but has had no reaction to the two doses she's had already. Please call [phone] and ask for the [address] nurse. documented in this encounter [facility] 04-19-2022 Miscellaneous Notes Fax sent Received request for orders for suspected ear infection/ URI from [employer]. Placed in provider's inbox for review. Route to [place] fax documented in this encounter [facility] 03-27-2022 Miscellaneous Notes Received 03/26/2022 from [employer]. Placed in provider's inbox for review. Route to [place] for review. documented in this encounter [facility] 02-02-2022 Miscellaneous Notes Received 02/02/2022 from [employer]. Placed in provider's inbox for review. Route to [place] for faxing Patient complaining of ear pain. Nurse noted redness and swelling Doxycycline 100 mg bid x 10 days ordered. documented in this encounter [facility] 11-15-2021 Miscellaneous Notes Received prescription request for therapeutic shoes from [employer]. Placed in provider's inbox for review. Orders have been faxed. documented in this encounter [facility] 10-04-2021 Note Patient Outreach (FA MDNA) SILVIA WILSON ([id number]) 1950 F Date Time Provider Department 10/04/21 AG HURST During your visit today, we recorded the following information about you: Shital Bradfordak 10/04/2021 9:42 AM Signed Care Gap Reviewed: Follow-up appointment Phone call placed to patient. Pt identified by name and : NO Outreach Outcome/Action: Unable to reach patient: Phone number not valid / voicemail full If patient deferred or declined to schedule appointment, please indicate the reason(s): Other NA Shital Hudson Shital Hudson 10/04/2021 9:42 AM Signed The patient has been identified by name and date of : YES I have scheduled the patient for an appointment on Visit date not found. The patient will report to the lab prior to the visit. I have pended the following lab orders: Pended Orders None [facility] Documentation 09/29/2021 10/03/2021 Opts out of Population Health Postponed Postponed Postponed Date 10/02/2021 10/04/2021 Shital Hudson Allergies As of Date: 10/04/2021 Noted Allergy Reaction DILAUDID (HYDROMORPHONE (BULK)) 03/23/2010 16 - Unknown Comments: Iv is okay not po per patient DURATUSS (PHENYLEPHRINE-GUAIFENES* 5 ELAVIL (AMITRIPTYLINE HCL) 08/29/2004 GABAPENTIN 08/29/2004 16 - Unknown KEFLEX (CEPHALEXIN) 01/16/2018 6 - Diarrhea MERTHIOLATE (THIMEROSAL) 07/26/2010 16 - Unknown METFORMIN 12/18/2018 14 - Other: See Comments Comments: Lactic acidosis METHIONINE 09/09/2018 16 - Unknown MORPHINE 08/29/2004 MRI [Other] 08/29/2004 14 - Other: See Comments Comments: per patient , no MRI can be performed because she has two metal clips in her brain OXYCONTIN (OXYCODONE HCL) 08/29/2004 PROPOXYPHENE 03/23/2010 16 - Unknown PROPOXYPHENE N-ACETAMINOPHEN 09/09/2018 16 - Unknown TEQUIN (GATIFLOXACIN) 08/29/2004 ULTRACET (TRAMADOL-ACETAMINOPHEN) 08/29/2004 Date Reviewed: 07/29/2020 Reviewed by: Ivelisse (Rn) EVERETTE Cullen - Fully Assessed Reason for Visit: Appointment [186] Cmt: HTN Prescriptions as of 10/04/2021 - cholecalciferol (VITAMIN D3) 1,000 unit tab tablet Take 2,000 Units by mouth once daily. - cyanocobalamin (VITAMIN B-12) 1,000 mcg tab Take 1,000 mcg by mouth once daily. - insulin glargine,hum.rec.anlog (LANTUS SOLOSTAR U-100 INSULIN SUBCUTANEOUS) Inject 20 Units subcutaneously daily at bedtime. - lidocaine (LIDODERM) 5 % Apply 1 Patch as directed every 24 hours. - omeprazole (PRILOSEC) 40 mg capsule Take 40 mg by mouth once daily. - salmeterol (SEREVENT) 50 mcg/dose diskus inhaler Inhale 1 Puff as instructed twice daily. - divalproex DR (DEPAKOTE) 125 mg EC tablet Take 125 mg by mouth twice daily. - acetaminophen (TYLENOL) 325 mg tablet Take 650 mg by mouth every 6 hours as needed for Pain or Fever (>100.4F). - atorvastatin (LIPITOR) 10 mg tablet Take 10 mg by mouth once daily. - potassium chloride (K-DUR ORAL) Take 20 mEq by mouth twice daily. - ETODOLAC ORAL Take 400 mg by mouth twice daily. - metoprolol tartrate, short acting, (LOPRESSOR) 25 mg tablet Take 0.5 tablets by mouth every 12 hours. - diltiazem CD (CARDIZEM CD, CARTIA XT) 240 mg 24 hr capsule Take 1 capsule by mouth once daily. - furosemide (LASIX) 40 mg tablet Take 1 tablet by mouth once daily. - budesonide (PULMICORT) 0.5 mg/2 mL nebulizer solution Use 2 mL via nebulizer twice daily. - melatonin 3 mg tablet Take 3 mg by mouth daily at bedtime. - albuterol (PROVENTIL) 2.5 mg /3 mL (0.083 %) nebulizer solution Use 3 mL via nebulizer every 4 hours as needed for Wheezing/Shortness of Breath. - traZODone (DESYREL) 50 mg tablet Take 1 tablet by mouth daily at bedtime. - DULoxetine (CYMBALTA) 60 mg capsule Take 1 capsule by mouth once daily. - aspirin, enteric coated (ASPIRIN, ENTERIC COATED) 81 mg EC tablet Take 81 mg by mouth once daily. - Miscellaneous Medical Supply (OXYGEN SUPPLY TUBE) misc Use all the time . 24 hours and 7 days a week - MULTIVITAMIN ORAL TAB Take one(1) tablet daily. Meds Comments as of 10/09/2018: 6-97-86-Patient need to olive picker pulmicort and prednisone. Using prednisone that was still in home. Problem List As Of Date 10/04/2021 Noted Resolved Lumbosacral spondylosis without myelopathy [M47*09/29/2004 Degeneration of lumbosacral intervertebral disc*09/29/2004 Acute exacerbation of chronic obstructive airwa*01/27/2015 11/13/2018 Acute on chronic respiratory failure with hypox*01/27/2015 Community acquired pneumonia [J18.9] 01/27/2015 10/03/2018 Hyperglycemia [R73.9] 08/19/2015 12/18/2018 Acute bronchitis with chronic obstructive pulmo*02/04/2016 10/28/2018 Morbid obesity (HCC) [E66.01] 12/19/2016 10/03/2018 Oxygen desaturation [R09.02] 01/17/2018 11/13/2018 Nicotine use disorder, F17.2 [F17.200] 06/24/2018 10/03/2018 Essential hypertension [I10] 10/21/2008 Diabetes mellitus type 2, controlled, without c*09/13/2018 (more content not included)... [facility] 10-04-2021 Note HNO ID: [id number] Author: Shital Hudson Service: ? Author Type: ? Type: Progress Notes Filed: 10/04/2021 9:42 AM Note Text: The patient has been identified by name and date of : YES I have scheduled the patient for an appointment on Visit date not found. The patient will report to the lab prior to the visit. I have pended the following lab orders: Pended Orders None [facility] Documentation 09/29/2021 10/03/2021 Opts out of Population Health Postponed Postponed Postponed Date 10/02/2021 10/04/2021 Shital Hudson [facility] 10-04-2021 Note HNO ID: [id number] Author: Shital Hudson Service: ? Author Type: ? Type: Progress Notes Filed: 10/04/2021 9:42 AM Note Text: Care Gap Reviewed: Follow-up appointment Phone call placed to patient. Pt identified by name and : NO Outreach Outcome/Action: Unable to reach patient: Phone number not valid / voicemail full If patient deferred or declined to schedule appointment, please indicate the reason(s): Other NA Shital Hudson [facility] 10-04-2021 History of Present illness Narrative The patient has been identified by name and date of : YES I have scheduled the patient for an appointment on Visit date not found. The patient will report to the lab prior to the visit. I have pended the following lab orders: Pended Orders None [facility] Documentation 09/29/2021 10/03/2021 Opts out of Population Health Postponed Postponed Postponed Date 10/02/2021 10/04/2021 Shital Hudson Care Gap Reviewed: Follow-up appointment Phone call placed to patient. Pt identified by name and : NO Outreach Outcome/Action: Unable to reach patient: Phone number not valid / voicemail full If patient deferred or declined to schedule appointment, please indicate the reason(s): Carly Hudson documented in this encounter [facility] 10-03-2021 Note HNO ID: [id number] Author: Shital Hudson Service: ? Author Type: ? Type: Progress Notes Filed: 11/03/2021 3:01 AM Note Text: The patient has been identified by name and date of : YES I have scheduled the patient for an appointment on Visit date not found. The patient will report to the lab prior to the visit. I have pended the following lab orders: Pended Orders None [facility] Documentation 09/29/2021 Opts out of Population Health Postponed Postponed Date 10/02/2021 Shital Hudson [facility] 10-03-2021 Note HNO ID: [id number] Author: Shital Hudson Service: ? Author Type: ? Type: Progress Notes Filed: 11/03/2021 3:01 AM Note Text: Care Gap Reviewed: Follow-up appointment Phone call placed to patient. Pt identified by name and : NO Outreach Outcome/Action: Unable to reach patient: Phone number not valid / voicemail full If patient deferred or declined to schedule appointment, please indicate the reason(s): Other [place] [facility] 10-03-2021 Note Patient Outreach (FA [place]) SILVIA WILSON ([id number]) 1950 F Date Time Provider Department 10/03/21 AG HURST During your visit today, we recorded the following information about you: Shital Hudson 11/03/2021 3:01 AM Signed Care Gap Reviewed: Follow-up appointment Phone call placed to patient. Pt identified by name and : NO Outreach Outcome/Action: Unable to reach patient: Phone number not valid / voicemail full If patient deferred or declined to schedule appointment, please indicate the reason(s): Other NA Shital Hudson 11/03/2021 3:01 AM Signed The patient has been identified by name and date of : YES I have scheduled the patient for an appointment on Visit date not found. The patient will report to the lab prior to the visit. I have pended the following lab orders: Pended Orders None [facility] Documentation 09/29/2021 Opts out of Population Health Postponed Postponed Date 10/02/2021 Shital Hudson Allergies As of Date: 10/03/2021 Noted Allergy Reaction DILAUDID (HYDROMORPHONE (BULK)) 03/23/2010 16 - Unknown Comments: Iv is okay not po per patient DURATUSS (PHENYLEPHRINE-GUAIFENES* 5 ELAVIL (AMITRIPTYLINE HCL) 08/29/2004 GABAPENTIN 08/29/2004 16 - Unknown KEFLEX (CEPHALEXIN) 01/16/2018 6 - Diarrhea MERTHIOLATE (THIMEROSAL) 07/26/2010 16 - Unknown METFORMIN 12/18/2018 14 - Other: See Comments Comments: Lactic acidosis METHIONINE 09/09/2018 16 - Unknown MORPHINE 08/29/2004 MRI [Other] 08/29/2004 14 - Other: See Comments Comments: per patient , no MRI can be performed because she has two metal clips in her brain OXYCONTIN (OXYCODONE HCL) 08/29/2004 PROPOXYPHENE 03/23/2010 16 - Unknown PROPOXYPHENE N-ACETAMINOPHEN 09/09/2018 16 - Unknown TEQUIN (GATIFLOXACIN) 08/29/2004 ULTRACET (TRAMADOL-ACETAMINOPHEN) 08/29/2004 Date Reviewed: 07/29/2020 Reviewed by: Ivelisse (Rn) EVERETTE Cullen - Fully Assessed Reason for Visit: Appointment [186] Cmt: HTN Prescriptions as of 11/03/2021 - cholecalciferol (VITAMIN D3) 1,000 unit tab tablet Take 2,000 Units by mouth once daily. - cyanocobalamin (VITAMIN B-12) 1,000 mcg tab Take 1,000 mcg by mouth once daily. - insulin glargine,hum.rec.anlog (LANTUS SOLOSTAR U-100 INSULIN SUBCUTANEOUS) Inject 20 Units subcutaneously daily at bedtime. - lidocaine (LIDODERM) 5 % Apply 1 Patch as directed every 24 hours. - omeprazole (PRILOSEC) 40 mg capsule Take 40 mg by mouth once daily. - salmeterol (SEREVENT) 50 mcg/dose diskus inhaler Inhale 1 Puff as instructed twice daily. - divalproex DR (DEPAKOTE) 125 mg EC tablet Take 125 mg by mouth twice daily. - acetaminophen (TYLENOL) 325 mg tablet Take 650 mg by mouth every 6 hours as needed for Pain or Fever (>100.4F). - atorvastatin (LIPITOR) 10 mg tablet Take 10 mg by mouth once daily. - potassium chloride (K-DUR ORAL) Take 20 mEq by mouth twice daily. - ETODOLAC ORAL Take 400 mg by mouth twice daily. - metoprolol tartrate, short acting, (LOPRESSOR) 25 mg tablet Take 0.5 tablets by mouth every 12 hours. - diltiazem CD (CARDIZEM CD, CARTIA XT) 240 mg 24 hr capsule Take 1 capsule by mouth once daily. - furosemide (LASIX) 40 mg tablet Take 1 tablet by mouth once daily. - budesonide (PULMICORT) 0.5 mg/2 mL nebulizer solution Use 2 mL via nebulizer twice daily. - melatonin 3 mg tablet Take 3 mg by mouth daily at bedtime. - albuterol (PROVENTIL) 2.5 mg /3 mL (0.083 %) nebulizer solution Use 3 mL via nebulizer every 4 hours as needed for Wheezing/Shortness of Breath. - traZODone (DESYREL) 50 mg tablet Take 1 tablet by mouth daily at bedtime. - DULoxetine (CYMBALTA) 60 mg capsule Take 1 capsule by mouth once daily. - aspirin, enteric coated (ASPIRIN, ENTERIC COATED) 81 mg EC tablet Take 81 mg by mouth once daily. - Miscellaneous Medical Supply (OXYGEN SUPPLY TUBE) misc Use all the time . 24 hours and 7 days a week - MULTIVITAMIN ORAL TAB Take one(1) tablet daily. Meds Comments as of 10/09/2018: 8-66-74-Patient need to [facility] pulmicort and prednisone. Using prednisone that was still in home. Problem List As Of Date 10/03/2021 Noted Resolved Lumbosacral spondylosis without myelopathy [M47*09/29/2004 Degeneration of lumbosacral intervertebral disc*09/29/2004 Acute exacerbation of chronic obstructive airwa*01/27/2015 11/13/2018 Acute on chronic respiratory failure with hypox*01/27/2015 Community acquired pneumonia [J18.9] 01/27/2015 10/03/2018 Hyperglycemia [R73.9] 08/19/2015 12/18/2018 Acute bronchitis with chronic obstructive pulmo*02/04/2016 10/28/2018 Morbid obesity (HCC) [E66.01] 12/19/2016 10/03/2018 Oxygen desaturation [R09.02] 01/17/2018 11/13/2018 Nicotine use disorder, F17.2 [F17.200] 06/24/2018 10/03/2018 Essential hypertension [I10] 10/21/2008 Diabetes mellitus type 2, controlled, without c*09/13/2018 Acute on chronic respiratory (more content not included)... [facility] 09-29-2021 Note Patient Outreach (FA MDNA) SILVIA WILSON ([id number]) 1950 F Date Time Provider Department 09/29/21 AG HURST During your visit today, we recorded the following information about you: Shital Hudson 10/30/2021 3:00 AM Signed Care Gap Reviewed: Follow-up appointment Controlling Blood Pressure Phone call placed to patient. Pt identified by name and : NO Outreach Outcome/Action: Unable to reach patient: Phone number not valid / voicemail full If patient deferred or declined to schedule appointment, please indicate the reason(s): Other NA Shital Hudson 10/30/2021 3:00 AM Signed The patient has been identified by name and date of : YES I have scheduled the patient for an appointment on Visit date not found. The patient will report to the lab prior to the visit. I have pended the following lab orders: Pended Orders None No flowsheet data found. Shital Hudson Allergies As of Date: 09/29/2021 Noted Allergy Reaction DILAUDID (HYDROMORPHONE (BULK)) 03/23/2010 16 - Unknown Comments: Iv is okay not po per patient DURATUSS (PHENYLEPHRINE-GUAIFENES* 5 ELAVIL (AMITRIPTYLINE HCL) 08/29/2004 GABAPENTIN 08/29/2004 16 - Unknown KEFLEX (CEPHALEXIN) 01/16/2018 6 - Diarrhea MERTHIOLATE (THIMEROSAL) 07/26/2010 16 - Unknown METFORMIN 12/18/2018 14 - Other: See Comments Comments: Lactic acidosis METHIONINE 09/09/2018 16 - Unknown MORPHINE 08/29/2004 MRI [Other] 08/29/2004 14 - Other: See Comments Comments: per patient , no MRI can be performed because she has two metal clips in her brain OXYCONTIN (OXYCODONE HCL) 08/29/2004 PROPOXYPHENE 03/23/2010 16 - Unknown PROPOXYPHENE N-ACETAMINOPHEN 09/09/2018 16 - Unknown TEQUIN (GATIFLOXACIN) 08/29/2004 ULTRACET (TRAMADOL-ACETAMINOPHEN) 08/29/2004 Date Reviewed: 07/29/2020 Reviewed by: Ivelisse ResendizRn) EVERETTE Cullen - Fully Assessed Reason for Visit: Appointment [186] Cmt: HTN Prescriptions as of 10/30/2021 - cholecalciferol (VITAMIN D3) 1,000 unit tab tablet Take 2,000 Units by mouth once daily. - cyanocobalamin (VITAMIN B-12) 1,000 mcg tab Take 1,000 mcg by mouth once daily. - insulin glargine,hum.rec.anlog (LANTUS SOLOSTAR U-100 INSULIN SUBCUTANEOUS) Inject 20 Units subcutaneously daily at bedtime. - lidocaine (LIDODERM) 5 % Apply 1 Patch as directed every 24 hours. - omeprazole (PRILOSEC) 40 mg capsule Take 40 mg by mouth once daily. - salmeterol (SEREVENT) 50 mcg/dose diskus inhaler Inhale 1 Puff as instructed twice daily. - divalproex DR (DEPAKOTE) 125 mg EC tablet Take 125 mg by mouth twice daily. - acetaminophen (TYLENOL) 325 mg tablet Take 650 mg by mouth every 6 hours as needed for Pain or Fever (>100.4F). - atorvastatin (LIPITOR) 10 mg tablet Take 10 mg by mouth once daily. - potassium chloride (K-DUR ORAL) Take 20 mEq by mouth twice daily. - ETODOLAC ORAL Take 400 mg by mouth twice daily. - metoprolol tartrate, short acting, (LOPRESSOR) 25 mg tablet Take 0.5 tablets by mouth every 12 hours. - diltiazem CD (CARDIZEM CD, CARTIA XT) 240 mg 24 hr capsule Take 1 capsule by mouth once daily. - furosemide (LASIX) 40 mg tablet Take 1 tablet by mouth once daily. - budesonide (PULMICORT) 0.5 mg/2 mL nebulizer solution Use 2 mL via nebulizer twice daily. - melatonin 3 mg tablet Take 3 mg by mouth daily at bedtime. - albuterol (PROVENTIL) 2.5 mg /3 mL (0.083 %) nebulizer solution Use 3 mL via nebulizer every 4 hours as needed for Wheezing/Shortness of Breath. - traZODone (DESYREL) 50 mg tablet Take 1 tablet by mouth daily at bedtime. - DULoxetine (CYMBALTA) 60 mg capsule Take 1 capsule by mouth once daily. - aspirin, enteric coated (ASPIRIN, ENTERIC COATED) 81 mg EC tablet Take 81 mg by mouth once daily. - Miscellaneous Medical Supply (OXYGEN SUPPLY TUBE) misc Use all the time . 24 hours and 7 days a week - MULTIVITAMIN ORAL TAB Take one(1) tablet daily. Meds Comments as of 10/09/2018: 8-60-09-Patient need to [facility] pulmicort and prednisone. Using prednisone that was still in home. Problem List As Of Date 09/29/2021 Noted Resolved Lumbosacral spondylosis without myelopathy [M47*09/29/2004 Degeneration of lumbosacral intervertebral disc*09/29/2004 Acute exacerbation of chronic obstructive airwa*01/27/2015 11/13/2018 Acute on chronic respiratory failure with hypox*01/27/2015 Community acquired pneumonia [J18.9] 01/27/2015 10/03/2018 Hyperglycemia [R73.9] 08/19/2015 12/18/2018 Acute bronchitis with chronic obstructive pulmo*02/04/2016 10/28/2018 Morbid obesity (HCC) [E66.01] 12/19/2016 10/03/2018 Oxygen desaturation [R09.02] 01/17/2018 11/13/2018 Nicotine use disorder, F17.2 [F17.200] 06/24/2018 10/03/2018 Essential hypertension [I10] 10/21/2008 Diabetes mellitus type 2, controlled, without c*09/13/2018 Acute on chronic respiratory acidosis [E87.2] 09/13/2018 12/18/2018 Ob (more content not included)... [facility] 09-29-2021 Note HNO ID: [id number] Author: Shital Hudson Service: ? Author Type: ? Type: Progress Notes Filed: 10/30/2021 3:00 AM Note Text: The patient has been identified by name and date of : YES I have scheduled the patient for an appointment on Visit date not found. The patient will report to the lab prior to the visit. I have pended the following lab orders: Pended Orders None No flowsheet data found. Shital Hudson [facility] 09-29-2021 Note HNO ID: [id number] Author: Shital Hudson Service: ? Author Type: ? Type: Progress Notes Filed: 10/30/2021 3:00 AM Note Text: Care Gap Reviewed: Follow-up appointment Controlling Blood Pressure Phone call placed to patient. Pt identified by name and : NO Outreach Outcome/Action: Unable to reach patient: Phone number not valid / voicemail full If patient deferred or declined to schedule appointment, please indicate the reason(s): Other NA Shital Hudson [facility] 08-29-2021 Miscellaneous Notes Gradual Dose reduction request reviewed and signed by PCP faxed back to [facility]. documented in this encounter [facility] 08-25-2021 Miscellaneous Notes Received 08/25/2021 from [facility]. Placed in provider's inbox for review. Route to [place] for faxing [phone] 125 mg BID Duloxetine 60 mg daily Trazodone 75 mg HS documented in this encounter [facility] 08-14-2021 Miscellaneous Notes Received labs from [facility]. Placed in provider's inbox for review. Route to [place] scanning. documented in this encounter [facility] 07-29-2020 Note HNO ID: [id number] Author: Toña (Rn) EVERETTE Burkett Service: Care Management Author Type: Registered Nurse Type: Care Mgt Progress Note Filed: 07/29/2020 2:24 PM Note Text: CARE MANAGEMENT DISCHARGE NOTE SERVICE DATE: 07/29/2020 SERVICE TIME: 2:16 PM LOS: 0 days Admission Date: 07/28/2020 DISCHARGE ARRANGEMENT (list agency and phone number) Return to [facility] Provider Name: [facility] CAREGIVER ASSESSMENT: D/C to SNF HANDOFF COMMUNICATION: Ag Hurst MD TRANSPORTATION ARRANGEMENTS: [facility] Ambulance to [facility] 07/29/2020 with O2 at 2L cont. ADDITIONAL CONTACT RESOURCES: Vmx left for Pts' Reshma Paz Wilson re D/C today. SIGNATURE: Toña Burkett, CARLOS MANUEL,BSN, ACM PATIENT NAME: Silvia Wilson DATE: July 29, 2020 TIME: 2:16 PM PAGER/CONTACT #: [phone] [facility] 07-29-2020 Note HNO ID: [id number] Author: Yovani Toledo Service: Cardiovascular Disease Author Type: Physician Type: Progress Notes Filed: 07/29/2020 10:25 AM Note Text: INPATIENT CONSULT PROGRESS NOTES Patient Name: Silvia Wilson DATE of SERVICE: 07/29/2020 TIME of SERVICE: 10:23 AM CONSULTING SERVICE: Cardiology INTERVAL HPI: Feeling much better and denies chest Pain or dyspnea. She had uneventful night. She is anxious to go home DRUGS REVIEWED: ASSESSMENT AND PLAN: Atypical chest pain: Normal ecg and negative enzymes Near normal coronaries (2019) Hypertension Diabetes Hyperlipidemia Needs no further cardiac work up Continue current management OK to discharge from cardiac point of view? PHYSICAL EXAM: Blood pressure 144/57, pulse 105, temperature 36.8 ?C (98.2 ?F), temperature source Oral, resp. rate 20, height 157.5 cm (5' 2 ), weight 117.9 kg (260 lb), SpO2 96 %. Body mass index is 47.55 kg/m?. GENERAL: Alert, no distress, cooperative NECK: No jugulovenous distention, No carotid bruits, Carotid pulse normal contour, Supple LUNGS: Lungs clear to auscultation, Good diaphragmatic excursion CARDIAC: Normal S1 and S2; no rubs, murmurs, or gallops ABDOMEN:benign, soft, flat, non-tender, no masses, normal bowel sounds NEURO: Awake, alert and oriented x 3 EXTREMITIES: Extremities normal, no deformities, edema, clubbing or skin discoloration. Good capillary refill., No ulcers PULSES: 2+ radial, 2+ carotid LABS: CBC: Recent Labs 07/29/20 0612 WBC 8.48 RBC 4.44 HB 11.9 HCT 38.8 PLT 220 MCV 87.4 MCH 26.8 MPV 9.1 CMP: Recent Labs 07/29/20 0612 NA 143 K 4.7 CHLOR 102 CO2 35* BUN 14 CREAT 0.77 GLUC 147* TPROT 6.7 CA 9.3 TBILI 0.2 ALKPHOS 109 ALT 15 AST 15 ANION 6* Cardiac Enzymes: Recent Labs 07/29/20 0612 TROPT <0.010 SIGNATURE: Yovani Toledo MD CELL; [phone] DATE: July 29, 2020 TIME: 10:23 AM [facility] 07-28-2020 Note HNO ID: [id number] Author: Kalani Gutierrez (Sw) Service: Care Management Author Type: Brim Pouncer Type: Care Mgt Initial Assessment Filed: 07/28/2020 1:28 PM Note Text: CARE MANAGEMENT: ASSESSMENT AND DISCHARGE PLAN SERVICE DATE: July 28, 2020 SERVICE TIME: 1:15 PM PRIMARY CARE PHYSICIAN: Ag Hurst MD - unconfirmed at this time ADMISSION STATUS: Emergency Needs Prior to Discharge: To Be Determined;Discharge Transportation MEDICAL: [employer] H[employer] SNP Patient/Front Services Agent Stated Goals: To return home to life as it was Health Insurance: Comment;[employer]) Health Issues Impacting Discharge Plan: Chronic Chronic: COPD, AFib, CHF, DM, HTN Last Discharge Date: 01/17/19 Is this Within the Past 30 days? Last discharge within 30 days: No Advance Directive: Current Advance Directive: Health Care Power of Air Support Control Officer In Chart: No Loom Technician Attempted to Assist with AD Completion: Yes Action: Education Provided (ene/Jennifer states michaelr/Aida is now POA, no paperwork currently on file) Health Literacy Unable to assess health literacy at this time, pt did not participate in assessment Baseline Mental Status Prior to this Illness what was the patient's Baseline Mental Status?: Alert AND Oriented Prior to this illness, has anyone described the patient having any of the following behaviors?: Not Applicable Relationship of the informant to the patient:: Daughter Name of Informant: : Jennifer Functional Status: Needs Assistance Does Patient Currently Receive Any Community Services or Home Care?: None Equipment Prior to Admission: Other: See Comment (needed equipment provided by [facility] at this time) Has the Patient Been in a Group Home Facility in the Past 30 days?: No (per ene/Jennifer, pt is exterminator resident, 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) SOCIAL: Living Arrangements: Nursing Facility Lives With: N/A Patient from Facility Facility Information: [facility] Financial Resources: Retired Primary Contact: Extended Emergency Contact Information Primary Emergency Contact: Brandi Wilson Address: [address] [place] [address] Mobile Relation: Daughter Secondary Emergency Contact: Jennifer Wilson Address: [address] [place] [address] Mobile Relation: Daughter Supportive Patient Contact:: Yes Contact Resources: Family Family Name/Phone: Desiree [phone] Caregiver AssessmentCaregiver is ready, willing and able to meet the patient's needs as recommended by the inter-professional team:: Yes Does the patient have an acute stroke diagnosis, or has the patient had a stroke during this admission?: No Patient's transition needs and plan for meeting these needs: return to [facility] where needs are met Patient's perception of need for this admission: per dtr, facility sent pt to hospital for chest pain and SOB Medication Adherance I am convinced of the importance of my prescription medication: 0 - Agree Completely I worry that my prescription medication will do more harm than good to me : 0 - Disagree Completely I feel financially burdened by my [id number] expenses for my prescription medication:: 0 - Disagree Completely Risk Score: 0 Patient is categorized as: Low risk < 2 Are you interested in bedside delivery of your medications? No medications managed by facility at this time Is Patient Psychosocially Complex?: No ASSESSMENT AND PLAN: Medical Needs: Medical Needs: Two or more chronic diseases Psychosocial Needs: Psychosocial Needs: Mental Health Diagnosis Mental Health Information: dx bipolar FREEDOM OF CHOICE EXPLAINED: [place] of Choice Given: Yes Level of Care Discussed: Group Home Facility (per Jennifer, pt is LTC resident and will return to [facility]) POTENTIAL TRANSITION PLANS Group Home Facility/Intermediate Care Facility Assessment completed with pt's michaelr/Jennifer via phone, introduced self and role of case management. Per chart, Jennifer was POA; however, Jennifer states she is not POA, states dtr/Aida is POA and provided Aida's contact information as above. Jennifer does confirm pt is LTC resident at [facility] and will return at d/c, ECF referral sent. TATUM left for dtr/Aida to confirm d/c plan, will also request copy of POA paperwork be provided if she has it available, as there is no paperwork on file. Anticipate complex d/c needs, case management to remain available for d/c planning and assist as needed. SIGNATURE: TATUM Murillo PATIENT NAME: Silvia Wilson DATE: July 28, 2020 TIME: 1:24 PM PAGER/CONTACT #: [phone] [facility] documented as of this encounter (statuses as of 08/14/2021) [facility]2019 History of Past illness Narrative* Problem Noted Date Resolved Date Acute respiratory failure 12/06/20182018 Leukocytosis 11/26/2018 12/18/2018 Overview: Leukocytosis without fever Increased lactic level WBC on admission 21.41 Presently 15.37 this am On PO steroids chronically Lactic on admission 3.9 with recheck of 1.8 Other chest pain 11/25/2018 12/18/2018 Acute on chronic respiratory acidosis 09/13/2018 12/18/2018 Last Assessment & Plan: Assessment: Resolved PLAN: BIPAP at night ,continous oxygen to maintain SpO2 > 90 % Obesity 09/13/2018 10/03/2018 Overview: BMI 42.06, 09/2018 Nicotine use disorder, F17.2 06/24/2018 Overview: Claims to have quit 2016. Oxygen desaturation 01/17/2018 11/13/2018 Morbid obesity 12/19/2016 10/03/2018 Last Assessment & Plan: Assessment: Continue carb controlled diet PLAN: Needs outpatient nutrition consult. Acute bronchitis with chroni c obstructive pulmonary disease (COPD) 02/04/2016 10/28/2018 Hyperglycemia 08/19/2015 12/18/2018 Acute exacerbation of chronic obstructive airway s disease 01/27/2015 11/13/2018 Last Assessment & Plan: Assessment: Improving ,lactate down trending PLAN: BPH,IS,OOB to chair BIPAP as needed for dyspnea and increased work of breathing Community acquired pneumonia 01/27/2015 documented as of this encounter (statuses as of 08/25/2021) [facility] History of Past illness Narrative* Problem Noted Date Resolved Date Acute respiratory failure 12/06/20182018 Leukocytosis 11/26/2018 12/18/2018 Overview: Leukocytosis without fever Increased lactic level WBC on admission 21.41 Presently 15.37 this am On PO steroids chronically Lactic on admission 3.9 with recheck of 1.8 Other chest pain 11/25/2018 12/18/2018 Acute on chronic respiratory acidosis 09/13/2018 12/18/2018 Last Assessment & Plan: Assessment: Resolved PLAN: BIPAP at night ,continous oxygen to maintain SpO2 > 90 % Obesity 09/13/2018 10/03/2018 Overview: BMI 42.06, 09/2018 Nicotine use disorder, F17.2 06/24/2018 Overview: Claims to have quit 2016. Oxygen desaturation 01/17/2018 11/13/2018 Morbid obesity 12/19/2016 10/03/2018 Last Assessment & Plan: Assessment: Continue carb controlled diet PLAN: Needs outpatient nutrition consult. Acute bronchitis with chroni c obstructive pulmonary disease (COPD) 02/04/2016 10/28/2018 Hyperglycemia 08/19/2015 12/18/2018 Acute exacerbation of chronic obstructive airway s disease 01/27/2015 11/13/2018 Last Assessment & Plan: Assessment: Improving ,lactate down trending PLAN: BPH,IS,OOB to chair BIPAP as needed for dyspnea and increased work of breathing Community acquired pneumonia 01/27/2015 documented as of this encounter (statuses as of 08/29/2021) [facility] History of Past illness Narrative* Problem Noted Date Resolved Date Acute respiratory failure 12/06/20182018 Leukocytosis 11/26/2018 12/18/2018 Overview: Leukocytosis without fever Increased lactic level WBC on admission 21.41 Presently 15.37 this am On PO steroids chronically Lactic on admission 3.9 with recheck of 1.8 Other chest pain 11/25/2018 12/18/2018 Acute on chronic respiratory acidosis 09/13/2018 12/18/2018 Last Assessment & Plan: Assessment: Resolved PLAN: BIPAP at night ,continous oxygen to maintain SpO2 > 90 % Obesity 09/13/2018 10/03/2018 Overview: BMI 42.06, 09/2018 Nicotine use disorder, F17.2 06/24/2018 Overview: Claims to have quit 2016. Oxygen desaturation 01/17/2018 11/13/2018 Morbid obesity 12/19/2016 10/03/2018 Last Assessment & Plan: Assessment: Continue carb controlled diet PLAN: Needs outpatient nutrition consult. Acute bronchitis with chroni c obstructive pulmonary disease (COPD) 02/04/2016 10/28/2018 Hyperglycemia 08/19/2015 12/18/2018 Acute exacerbation of chronic obstructive airway s disease 01/27/2015 11/13/2018 Last Assessment & Plan: Assessment: Improving ,lactate down trending PLAN: BPH,IS,OOB to chair BIPAP as needed for dyspnea and increased work of breathing Community acquired pneumonia 01/27/2015 documented as of this encounter (statuses as of 10/04/2021) [facility] History of Past illness Narrative* Problem Noted Date Resolved Date Acute respiratory failure 12/06/20182018 Leukocytosis 11/26/2018 12/18/2018 Overview: Leukocytosis without fever Increased lactic level WBC on admission 21.41 Presently 15.37 this am On PO steroids chronically Lactic on admission 3.9 with recheck of 1.8 Other chest pain 11/25/2018 12/18/2018 Acute on chronic respiratory acidosis 09/13/2018 12/18/2018 Last Assessment & Plan: Assessment: Resolved PLAN: BIPAP at night ,continous oxygen to maintain SpO2 > 90 % Obesity 09/13/2018 10/03/2018 Overview: BMI 42.06, 09/2018 Nicotine use disorder, F17.2 06/24/2018 Overview: Claims to have quit 2016. Oxygen desaturation 01/17/2018 11/13/2018 Morbid obesity 12/19/2016 10/03/2018 Last Assessment & Plan: Assessment: Continue carb controlled diet PLAN: Needs outpatient nutrition consult. Acute bronchitis with chroni c obstructive pulmonary disease (COPD) 02/04/2016 10/28/2018 Hyperglycemia 08/19/2015 12/18/2018 Acute exacerbation of chronic obstructive airway s disease 01/27/2015 11/13/2018 Last Assessment & Plan: Assessment: Improving ,lactate down trending PLAN: BPH,IS,OOB to chair BIPAP as needed for dyspnea and increased work of breathing Community acquired pneumonia 01/27/2015 documented as of this encounter (statuses as of 11/15/2021) [facility] History of Past illness Narrative* Problem Noted Date Resolved Date Acute respiratory failure 12/06/20182018 Leukocytosis 11/26/2018 12/18/2018 Overview: Leukocytosis without fever Increased lactic level WBC on admission 21.41 Presently 15.37 this am On PO steroids chronically Lactic on admission 3.9 with recheck of 1.8 Other chest pain 11/25/2018 12/18/2018 Acute on chronic respiratory acidosis 09/13/2018 12/18/2018 Last Assessment & Plan: Assessment: Resolved PLAN: BIPAP at night ,continous oxygen to maintain SpO2 > 90 % Obesity 09/13/2018 10/03/2018 Overview: BMI 42.06, 09/2018 Nicotine use disorder, F17.2 06/24/2018 Overview: Claims to have quit 2016. Oxygen desaturation 01/17/2018 11/13/2018 Morbid obesity 12/19/2016 10/03/2018 Last Assessment & Plan: Assessment: Continue carb controlled diet PLAN: Needs outpatient nutrition consult. Acute bronchitis with chroni c obstructive pulmonary disease (COPD) 02/04/2016 10/28/2018 Hyperglycemia 08/19/2015 12/18/2018 Acute exacerbation of chronic obstructive airway s disease 01/27/2015 11/13/2018 Last Assessment & Plan: Assessment: Improving ,lactate down trending PLAN: BPH,IS,OOB to chair BIPAP as needed for dyspnea and increased work of breathing Community acquired pneumonia 01/27/2015 documented as of this encounter (statuses as of 02/02/2022) [facility]08-24-2019 History of Past illness Narrative* Problem Noted Date Resolved Date Acute respiratory failure 12/06/20182018 Leukocytosis 11/26/2018 12/18/2018 Overview: Leukocytosis without fever Increased lactic level WBC on admission 21.41 Presently 15.37 this am On PO steroids chronically Lactic on admission 3.9 with recheck of 1.8 Other chest pain 11/25/2018 12/18/2018 Acute on chronic respiratory acidosis 09/13/2018 12/18/2018 Last Assessment & Plan: Assessment: Resolved PLAN: BIPAP at night ,continous oxygen to maintain SpO2 > 90 % Obesity 09/13/2018 10/03/2018 Overview: BMI 42.06, 09/2018 Nicotine use disorder, F17.2 06/24/2018 Overview: Claims to have quit 2016. Oxygen desaturation 01/17/2018 11/13/2018 Morbid obesity 12/19/2016 10/03/2018 Last Assessment & Plan: Assessment: Continue carb controlled diet PLAN: Needs outpatient nutrition consult. Acute bronchitis with chroni c obstructive pulmonary disease (COPD) 02/04/2016 10/28/2018 Hyperglycemia 08/19/2015 12/18/2018 Acute exacerbation of chronic obstructive airway s disease 01/27/2015 11/13/2018 Last Assessment & Plan: Assessment: Improving ,lactate down trending PLAN: BPH,IS,OOB to chair BIPAP as needed for dyspnea and increased work of breathing Community acquired pneumonia 01/27/2015 documented as of this encounter (statuses as of 03/27/2022) [facility]08-24-2019 History of Past illness Narrative* Problem Noted Date Resolved Date Acute respiratory failure 12/06/20182018 Leukocytosis 11/26/2018 12/18/2018 Overview: Leukocytosis without fever Increased lactic level WBC on admission 21.41 Presently 15.37 this am On PO steroids chronically Lactic on admission 3.9 with recheck of 1.8 Other chest pain 11/25/2018 12/18/2018 Acute on chronic respiratory acidosis 09/13/2018 12/18/2018 Last Assessment & Plan: Assessment: Resolved PLAN: BIPAP at night ,continous oxygen to maintain SpO2 > 90 % Obesity 09/13/2018 10/03/2018 Overview: BMI 42.06, 09/2018 Nicotine use disorder, F17.2 06/24/2018 Overview: Claims to have quit 2016. Oxygen desaturation 01/17/2018 11/13/2018 Morbid obesity 12/19/2016 10/03/2018 Last Assessment & Plan: Assessment: Continue carb controlled diet PLAN: Needs outpatient nutrition consult. Acute bronchitis with chroni c obstructive pulmonary disease (COPD) 02/04/2016 10/28/2018 Hyperglycemia 08/19/2015 12/18/2018 Acute exacerbation of chronic obstructive airway s disease 01/27/2015 11/13/2018 Last Assessment & Plan: Assessment: Improving ,lactate down trending PLAN: BPH,IS,OOB to chair BIPAP as needed for dyspnea and increased work of breathing Community acquired pneumonia 01/27/2015 documented as of this encounter (statuses as of 04/19/2022) [facility]08-24-2019 History of Past illness Narrative* Problem Noted Date Resolved Date Acute respiratory failure 12/06/20182018 Leukocytosis 11/26/2018 12/18/2018 Overview: Leukocytosis without fever Increased lactic level WBC on admission 21.41 Presently 15.37 this am On PO steroids chronically Lactic on admission 3.9 with recheck of 1.8 Other chest pain 11/25/2018 12/18/2018 Acute on chronic respiratory acidosis 09/13/2018 12/18/2018 Last Assessment & Plan: Assessment: Resolved PLAN: BIPAP at night ,continous oxygen to maintain SpO2 > 90 % Obesity 09/13/2018 10/03/2018 Overview: BMI 42.06, 09/2018 Nicotine use disorder, F17.2 06/24/2018 Overview: Claims to have quit 2017. Oxygen desaturation 01/17/2018 11/13/2018 Morbid obesity 12/19/2016 10/03/2018 Last Assessment & Plan: Assessment: Continue carb controlled diet PLAN: Needs outpatient nutrition consult. Acute bronchitis with chroni c obstructive pulmonary disease (COPD) 02/04/2016 10/28/2018 Hyperglycemia 08/19/2015 12/18/2018 Acute exacerbation of chronic obstructive airway s disease 01/27/2015 11/13/2018 Last Assessment & Plan: Assessment: Improving ,lactate down trending PLAN: BPH,IS,OOB to chair BIPAP as needed for dyspnea and increased work of breathing Community acquired pneumonia 01/27/2015 documented as of this encounter (statuses as of 04/20/2022) [facility]08-24-2019 History of Past illness Narrative* Problem Noted Date Resolved Date Acute respiratory failure 12/06/20182018 Leukocytosis 11/26/2018 12/18/2018 Overview: Leukocytosis without fever Increased lactic level WBC on admission 21.41 Presently 15.37 this am On PO steroids chronically Lactic on admission 3.9 with recheck of 1.8 Other chest pain 11/25/2018 12/18/2018 Acute on chronic respiratory acidosis 09/13/2018 12/18/2018 Last Assessment & Plan: Assessment: Resolved PLAN: BIPAP at night ,continous oxygen to maintain SpO2 > 90 % Obesity 09/13/2018 10/03/2018 Overview: BMI 42.06, 09/2018 Nicotine use disorder, F17.2 06/24/2018 Overview: Claims to have quit 2016. Oxygen desaturation 01/17/2018 11/13/2018 Morbid obesity 12/19/2016 10/03/2018 Last Assessment & Plan: Assessment: Continue carb controlled diet PLAN: Needs outpatient nutrition consult. Acute bronchitis with chroni c obstructive pulmonary disease (COPD) 02/04/2016 10/28/2018 Hyperglycemia 08/19/2015 12/18/2018 Acute exacerbation of chronic obstructive airway s disease 01/27/2015 11/13/2018 Last Assessment & Plan: Assessment: Improving ,lactate down trending PLAN: BPH,IS,OOB to chair BIPAP as needed for dyspnea and increased work of breathing Community acquired pneumonia 01/27/2015 documented as of this encounter (statuses as of 05/29/2022) [facility]08-24-2019 History of Past illness Narrative* Problem Noted Date Resolved Date Acute respiratory failure 12/06/20182018 Leukocytosis 11/26/2018 12/18/2018 Overview: Leukocytosis without fever Increased lactic level WBC on admission 21.41 Presently 15.37 this am On PO steroids chronically Lactic on admission 3.9 with recheck of 1.8 Other chest pain 11/25/2018 12/18/2018 Acute on chronic respiratory acidosis 09/13/2018 12/18/2018 Last Assessment & Plan: Assessment: Resolved PLAN: BIPAP at night ,continous oxygen to maintain SpO2 > 90 % Obesity 09/13/2018 10/03/2018 Overview: BMI 42.06, 09/2018 Nicotine use disorder, F17.2 06/24/2018 Overview: Claims to have quit 2016. Oxygen desaturation 01/17/2018 11/13/2018 Morbid obesity 12/19/2016 10/03/2018 Last Assessment & Plan: Assessment: Continue carb controlled diet PLAN: Needs outpatient nutrition consult. Acute bronchitis with chroni c obstructive pulmonary disease (COPD) 02/04/2016 10/28/2018 Hyperglycemia 08/19/2015 12/18/2018 Acute exacerbation of chronic obstructive airway s disease 01/27/2015 11/13/2018 Last Assessment & Plan: Assessment: Improving ,lactate down trending PLAN: BPH,IS,OOB to chair BIPAP as needed for dyspnea and increased work of breathing Community acquired pneumonia 01/27/2015 documented as of this encounter (statuses as of 06/25/2022) [facility] Summary Purpose Family History No Family History Records FoundNo Family History Records FoundNo Family History Records FoundNo Family History Records FoundNo Family History Records Found Advance Directives No Advanced Directives Records FoundDocuments on File Type Date Recorded Patient Front Services Agent Expl anation Advance Directive(s) 07/28/2020 7:56 AM Advance Directive(s) 01/13/2019 10:23 AM Advance Directive(s) 01/12/2019 8:40 PM Advance Directive(s) 12/15/2018 11:01 PM Advance Directive(s) 12/06/2018 4:09 AM Advance Directive(s) 12/04/2018 1:41 AM Advance Directive(s) 12/02/2018 11:11 AM Advance Directive(s) 11/25/2018 6:37 AM Advance Directive(s) 11/17/2018 8:00 PM Advance Directive(s) 11/10/2018 8:53 PM Advance Directive(s) 10/25/2018 9:17 PM Advance Directive(s) 10/02/2018 8:16 PM Advance Directive(s) 09/27/2018 10:48 PM Advance Directive(s) 09/13/2018 8:44 PM Advance Directive(s) 06/24/2018 4:34 PM Advance Directive(s) 04/02/2018 1:40 PM Advance Directive(s) 01/16/2018 8:30 PM Advance Directive(s) 12/17/2016 8:08 PM Latest Code Status on File Code Status Date Activated Date Inactivated Comments Full Code 07/29/2020 1:32 PM 07/29/2020 10:24 PM Full Code Order Discussed With: Patient DNR-CCA 12/18/2018 12:58 PM 12/23/2018 8:58 PM DNR Order Discussed With: Patient Full Code 12/06/2018 6:21 AM 12/13/2018 6:59 PM Full Code 11/15/2018 9:27 AM 11/17/2018 6:56 PM Patient does not want compression, okay with rescue meds and okay with shock. Full Code 10/26/2018 8:10 AM 10/28/2018 4:33 PM Hospital Course Note Patient: WILSON, SILVIA MRN: [id number] Age: 68 years Sex: Female : 1950 Associated Diagnoses: None Author: YOVANI TOLEDO MD DISCHARGE SUMMARY DOA: 11/26/2018 DOD: 11/27/2018 FINAL DIAGNOSIS: Chest pain: Ruled out for [place] Normal coronaries OTHER DIAGNOSIS: Hypertension Diabetes Hyperlipidemia Moderate obesity PROCEDURES: Left heart cath LABS: Reviewed HOSPITAL COURSE: Uneventful. No chest pain or dyspnea. MEDICATIONS: Reviewed PLAN: Home today FOLLOW UP: Two weeks Additional Source Comments INFORMATION SOURCE (unrecogn ized section and content) DATE CREATED AUTHOR AUTHOR'S ORGANIZ ATION 06/10/2020 [facility] DATE CREATED AUTHOR AUTHOR'S ORGANIZ ATION 07/07/2021 [facility] DATE CREATED AUTHOR AUTHOR'S ORGANIZ ATION 10/20/2021 [facility] DATE CREATED AUTHOR AUTHOR'S ORGANIZ ATION 06/29/2022 [facility] Source Comments (unrecognize d section and content) In the event this informatio n is protected by the Federal Confidentiality of Alcohol and Drug Abuse Patient Records regulations: The Federal rules restrict any use of the information to criminally investigate or prosecute any alcohol or drug abuse patient.[facility] the event this information is protected by the Federal Confidentiality of Alcohol and Drug Abuse Patient Records regulations: The Federal rules restrict any use of the information to criminally investigate or prosecute any alcohol or drug abuse patient.[facility]In the event this information is protected by the Federal Confidentiality of Alcohol and Drug Abuse Patient Records regulations: The Federal rules restrict any use of the information to criminally investigate or prosecute any alcohol or drug abuse patient.[facility] the event this information is protected by the Federal Confidentiality of Alcohol and Drug Abuse Patient Records regulations: The Federal rules restrict any use of the information to criminally investigate or prosecute any alcohol or drug abuse patient.[facility] the event this information is protected by the Federal Confidentiality of Alcohol and Drug Abuse Patient Records regulations: The Federal rules restrict any use of the information to criminally investigate or prosecute any alcohol or drug abuse patient.[facility] the event this information is protected by the Federal Confidentiality of Alcohol and Drug Abuse Patient Records regulations: The Federal rules restrict any use of the information to criminally investigate or prosecute any alcohol or drug abuse patient.[facility] the event this information is protected by the Federal Confidentiality of Alcohol and Drug Abuse Patient Records regulations: The Federal rules restrict any use of the information to criminally investigate or prosecute any alcohol or drug abuse patient.[facility] the event this information is protected by the Federal Confidentiality of Alcohol and Drug Abuse Patient Records regulations: The Federal rules restrict any use of the information to criminally investigate or prosecute any alcohol or drug abuse patient.[facility] the event this information is protected by the Federal Confidentiality of Alcohol and Drug Abuse Patient Records regulations: The Federal rules restrict any use of the information to criminally investigate or prosecute any alcohol or drug abuse patient.[facility] the event this information is protected by the Federal Confidentiality of Alcohol and Drug Abuse Patient Records regulations: The Federal rules restrict any use of the information to criminally investigate or prosecute any alcohol or drug abuse patient.[facility] the event this information is protected by the Federal Confidentiality of Alcohol and Drug Abuse Patient Records regulations: The Federal rules restrict any use of the information to criminally investigate or prosecute any alcohol or drug abuse patient.[facility] Reason for Visit (unrecogniz ed section and content) Reason Comments Received Outside Medical Records [facility] 08/25/2021 Request for orders for gradual dose reduction of medications Reason Comments Gradual Dose Reduction request from [facility] Reason Onset Date Comments Appointment 10/04/2021 HTN Reason Comments Orders diabetic solutions Reason Comments Orders [facility] 02/02/2022 Reason Comments Received Outside Medical Records Yue Abdi lab results from [facility] 03/26/2022 Reason Comments Orders [facility] Reason Comments Patient Question Reason Comments FYI-No Action Needed Reason Comments Outside Lab Results [facility], [facility] Care Teams (unrecognized sec tion and content) Title Department Manager Relationship Specialty Start Date End Date Ag Hurst MD [address] [place] [address] [address] [place], [place] [id number] PCP - General Family Medicine 07/28/20 Colin Duvall MD [address] [address] [place], [place] [id number] Referring Internal Medicine 12/05/18 Cloin Duvall MD [address] [address] [place], [place] [id number] Home Care Provider Internal Medicine 12/05/18 Apple Marino, [address] [place] [address] [employer] Machine Operator Post Acute Care 12/05/18 Title Department Manager Relationship Specialty Start Date End Date Ag Hurst MD [address] [facility] [address] [place], [place] [address] PCP - General Family Medicine 07/28/20 Colin Duvall MD [address] [facility] [address] [place] [address] Referring Internal Medicine 12/05/18 Colin Duvall MD [address] [facility] [address] [place] [address] Home Care Provider Internal Medicine 12/05/18 Apple Marino, RN [address] [place] [address] Napkin Machine Operator Post Acute Care 12/05/18 Title Department Manager Relationship Specialty Start Date End Date Ag Hurst MD [address] [place] [address] PCP - General Family Medicine 07/28/20 Colin Duvall MD [address] [facility] [address] [place] [address] Referring Internal Medicine 12/05/18 Colin Duvall MD [address] [facility] [address] [place] [address] Home Care Provider Internal Medicine 12/05/18 Apple Marino, RN [address] [place] [address] [employer]kin Machine Operator Post Acute Care 12/05/18 Title Department Manager Relationship Specialty Start Date End Date Colin Duvall MD [address] [facility] [address] [place] [address] Referring Internal Medicine 12/05/18 Colin Duvall MD [address] [facility] [address] [place] [address] Home Care Provider Internal Medicine 12/05/18 Apple Marino, RN [address] [place] [address] Napkin Machine Operator Post Acute Care 12/05/18 FOR RECORDS PERTAINING TO PATIENTS WHO ARE OR HAVE BEEN ENROLLED IN A CHEMICAL DEPENDENCY/SUBSTANCEABUSE PROGRAM, SOME INFORMATION MAY BE OMITTED. This clinical summary was aggregated from multiple sources. Caution should be exercised in using it in the provision of clinical care. This summary normalizes information from multiple sources, and as a consequence, information in this document may materially change the coding, format and clinical context of patient data. In addition, data may be omitted in some cases. CLINICAL DECISIONS SHOULD BE BASED ON THE PRIMARY CLINICAL RECORDS. [facility] [employer] provides no warranty or guarantee of the accuracy or completeness of information in this document.
[2023-03-26 08:53] LABS: Hematocrit 37.9 % (37-47); Hemoglobin 11.4 g/dL (12.0-15.0); Mean Corp Hgb Conc 30.1 g/dL (32-36); Mean Corpuscular Hgb 25.4 pg (27.0-32.0); Mean Corpuscular Volume 84.6 fL (81-99); Mean Platelet Vol. 9.2 fl (6.2-12.0); Platelet Count 242 K/mm3 (150-450); RBC Distribution Width CV 14.9 % (11.6-14.6); RBC Distribution Width SD 45.2 fl (35.1-43.9); Red Blood Count 4.48 M/mm3 (4.2-5.4); White Blood Count 8.6 K/mm3 (4.4-11.0)
[2023-03-26 09:07] LABS: Vitamin B12 373 pg/mL (211-911); Vitamin D,25 Hydroxy 36.9 ng/mL
[2023-03-26 09:28] LABS: ALB/GLOB Ratio 0.7 RATIO (0.9-2.4); AST(SGOT) 9 U/L (15-37); Alanine Aminotransfer ALT/SGPT 14 U/L (13-56); Albumin, Serum 2.5 g/dL (3.2-5.0); Alkaline Phosphatase 98 U/L (45-117); Anion Gap 4 (5-15); BUN 15 mg/dL (7-18); BUN/Creat Ratio 20.9 RATIO (10-20); Calcium,Total 8.6 mg/dL (8.5-10.1); Chloride 105 mmol/L (98-107); Creatinine, Serum 0.72 mg/dL (0.55-1.02); EST Glomerular Filtration Rate 85 mL/min (>60); Est Glom Filt Rate - Afr Amer 102 mL/min (>60); Globulin 3.8 g/dL (2.2-4.2); Glucose 97 mg/dL (74-106); Potassium 4.1 mmol/L (3.5-5.1); Protein, Total 6.3 g/dL (6.4-8.2); Sodium Level 143 mmol/L (136-145)
[2023-03-26 09:45] LABS: Valproic Acid (Depakene) Level < 3 ug/mL (50-100)
[2023-03-26 10:57] LABS: Hemoglobin A1c 6.1 % (3.8-5.6)
== END ==
LOC: OLS.ACW100 05:00
PROVIDERS: PCP Family Medicine; Visit Provider Family Medicine
DX: E55.9 Vitamin D deficiency, unspecified (principal); J44.1 Chronic obstructive pulmonary disease with (acute) exacerbation; E11.9 Type 2 diabetes mellitus without complications; J96.21 Acute and chronic respiratory failure with hypoxia; E78.5 Hyperlipidemia, unspecified; F31.9 Bipolar disorder, unspecified; F41.9 Anxiety disorder, unspecified; I10 Essential (primary) hypertension; D51.9 Vitamin B12 deficiency anemia, unspecified
CPT/HCPCS: 36415; 80053; 80164; 82306; 82607; 83036; 85027

== ENCOUNTER → 2023-04-30 | Outpatient (REF) | payer MEDICARE, MEDICAID, SELFPAY ==
[2023-04-30 10:09] LABS: Hematocrit 42.3 % (37-47); Hemoglobin 12.5 g/dL (12.0-15.0); Mean Corp Hgb Conc 29.6 g/dL (32-36); Mean Corpuscular Hgb 24.7 pg (27.0-32.0); Mean Corpuscular Volume 83.6 fL (81-99); Mean Platelet Vol. 9.1 fl (6.2-12.0); Platelet Count 310 K/mm3 (150-450); RBC Distribution Width CV 15.2 % (11.6-14.6); RBC Distribution Width SD 45.5 fl (35.1-43.9); Red Blood Count 5.06 M/mm3 (4.2-5.4); White Blood Count 9.5 K/mm3 (4.4-11.0)
[2023-04-30 10:14] LABS: Color, Urine Yellow (Yellow); Glucose, Dipstick Normal (Normal); Ketone-Dipstick Negative (Negative); Leukocyte Esterase-Dipstick Negative /ul (Negative); Nitrite-Dipstick Negative (Negative); Occult Blood-Urine Negative /ul (Negative); Protein-Dipstick 15 mg/dl (Negative); Urine Bilirubin Dipstick Negative (Negative); Urine Clarity Sl. Cloudy (Clear); Urine Urobilinogen 1 mg/dl (Normal)
[2023-04-30 10:39] LABS: Anion Gap 7 (5-15); BUN 21 mg/dL (7-18); BUN/Creat Ratio 28.9 RATIO (10-20); Calcium,Total 9.8 mg/dL (8.5-10.1); Chloride 101 mmol/L (98-107); Creatinine, Serum 0.73 mg/dL (0.55-1.02); EST Glomerular Filtration Rate 83 mL/min (>60); Est Glom Filt Rate - Afr Amer 101 mL/min (>60); Glucose 102 mg/dL (74-106); Potassium 3.8 mmol/L (3.5-5.1); Sodium Level 141 mmol/L (136-145); Thyroid Stim Hormone (TSH) 4.07 uIU/mL (0.358-3.74)
== END | disposition home or self-care (01) ==
LOC: OLS.ACW100 05:00
PROVIDERS: PCP Family Medicine; Visit Provider Family Medicine
DX: J44.1 Chronic obstructive pulmonary disease with (acute) exacerbation (principal); J96.22 Acute and chronic respiratory failure with hypercapnia; E11.9 Type 2 diabetes mellitus without complications
CPT/HCPCS: 36415; 80048; 81002; 84443; 85027; 87086; 87088

== ENCOUNTER → 2023-06-24 | Outpatient (REF) | payer MEDICARE, MEDICAID, SELFPAY ==
--- OUTSIDE RECORDS SUMMARY | 2023-06-24 05:06 | XMS RPT_ITS | CCD ---
Author Name Unknown Address [address] [place] [address] Organization [facility] Care Team Providers Care Toter Name Role Phone Jadiel DEL TORO, Colin Unavailable Jadiel DEL TORO, Colin Unavailable Ned GAVIRIA, Apple Sebastian Unavailable Ag Hurst MD Primary Care Provider [phone] Unavailable Primary Care Provider Unavailabl e Jadiel DEL TORO, Colin Unavailable Jadiel DEL TORO, Colin Unavailable Ned GAVIRIA, Apple Sebastian Unavailable Ag Hurst MD Primary Care Provider [phone] Jadiel DEL TORO, Colin Unavailable Jadiel DEL TORO, Colin Unavailable Ned GAVIRIA, Apple Sebastian Unavailable Ag Hurst MD Primary Care Provider [phone] Allergies Allergy Classification Reported Allergen(s) Allergy Type Date of Onset Reaction(s) Facility (11 sources) Acetaminophen / traMADol Drug Allergy 5 [facility] (11 sources) Amitriptyline Drug Allergy 5 [facility] (11 sources) Cephalexin Drug Allergy 8 Diarrhea [facility] (11 sources) gabapentin Drug Allergy 5 Unknown [facility] (11 sources) gatifloxacin Drug Allergy 5 [facility] (11 sources) guaiFENesin / Phenylephrine Drug Allergy 5 [facility] (11 sources) HYDROmorphone Drug Allergy 0 Unknown [facility] (11 sources) metFORMIN Drug Allergy 9 Other: See Comments [facility] Work Phone: (11 sources) Methionine Drug Allergy 9 Unknown [facility] Work Phone: (11 sources) Morphine Drug Allergy 5 [facility] (11 sources) oxyCODONE Drug Allergy 5 [facility] (11 sources) Propoxyphene Drug Allergy 0 Unknown [facility] (11 sources) Thimerosal Drug Allergy 1 Unknown [facility] (11 sources) MRI [Other] Propensity to adverse reactions 5 Other: See Comments [facility] Work Phone: (11 sources) Propoxyphene N-Acetaminophen Drug Allergy 9 Unknown [facility] Work Phone: Medications Completed/Discontinued Medications Medication Drug [...] Care Provider Facility Start: 06-25-2022 Telephone encounter Ag Hurst MD Work Phone: Family Practice Procedures [...] 04-15-2022 ADVANCE DIRECTIVE DISCUSSION ADVANCE DIRECTIVE DISCUSSION [facility] Start: 04-15-2022 DEPRESSION ASSESSMENT DEPRESSION ASSESSMENT [facility] Start: 12-14-2021 Influenza vaccination [facility] Start: 07-29-2021 Hepatitis B surface antibody level LDL CHOLESTEROL [facility] Start: 04-15-2021 ADVANCE DIRECTIVE DISCUSSION ADVANCE DIRECTIVE DISCUSSION [facility] Start: 04-15-2021 DEPRESSION ASSESSMENT DEPRESSION ASSESSMENT [facility] Start: 10-09-2020 COVID-19 Vaccine (3 - Booster for Pfizer series) COVID-19 Vaccine (3 - Booster for Pfizer series) [facility] Start: 08-15-2019 Adult depression screening assessment DEPRESSION SCREENING [facility] Start: 08-04-2018 Hemoglobin A1c/Hemoglobin.total in Blood HBA1C [facility] Start: 2015 Pneumococcal 65+ years Vaccine (1 - PCV) Pneumococcal 65+ years Vaccine (1 - PCV) [facility] Start: 2015 PNEUMOCOCCAL: 65+ (1 - PCV) PNEUMOCOCCAL: 65+ (1 - PCV) [facility] Start: 2015 PNEUMOVAX AGE 65 AND OVER WITH 5YR LOOKBACK (#1) PNEUMOVAX AGE 65 AND OVER WITH 5YR LOOKBACK (#1) [facility] Start: 11-04-2014 Mammography MAMMOGRAM [facility] Start: 10-16-2012 Shingles vaccine (2 of 3) Shingles vaccine (2 of 3) [facility] Start: 10-16-2012 SHINGRIX VACCINE (2 of 3) SHINGRIX VACCINE (2 of 3) [facility] Start: 2005 Screening for osteoporosis DEXA (modify frequency per FRAX score) [facility] Start: 01-11-2000 Screening for malignant neoplasm of breast Breast cancer screen [facility] Start: 09-01-1999 DTaP/Tdap/Td vaccine (1 - Tdap) DTaP/Tdap/Td vaccine (1 - Tdap) [facility] Start: 09-01-1999 Urine microalbumin profile DTAP,TDAP,TD (1 - Tdap) [facility] Start: 1995 COLOGUARD (FIT-DNA) COLOGUARD (FIT-DNA) [facility] Start: 1995 Colonoscopy COLONOSCOPY [facility] Start: 1995 COLORECTAL CANCER SCREENING COLORECTAL CANCER SCREENING [facility] Start: [address] COLONOGRAPHY [facility] Start: 1995 FECAL OCCULT BLOOD FECAL OCCULT BLOOD [facility] Start: 1995 Screening for malignant neoplasm of colon [facility] Start: 1995 SIGMOIDOSCOPY SIGMOIDOSCOPY [facility] Start: 1990 Lipid panel Lipids [facility] Start: 01-11-1980 Zoledronic acid therapy ALPHA-1 ANTITRYPSIN DEFICIENCY SCREENING [facility] Start: 01-11-1968 ANNUAL PCP TEAM CHRONIC DISEASE VISIT ANNUAL PCP TEAM CHRONIC DISEASE VISIT [facility] Start: 01-11-1968 BP CONTROLLED (<130/80) BP CONTROLLED (<130/80) [facility] Start: 01-11-1968 HEPATITIS C SCREENING HEPATITIS C SCREENING [facility] Start: 01-11-1968 Hepatitis C screening Hepatitis C screen [facility] Start: 1962 Depression Screen Depression Screen [facility] Start: 01-11-1960 3 comp foot exam completed DIABETIC FOOT EXAM [facility] Start: 01-11-1960 Hepatitis B screening URINE ALBUMIN:CREATININE RATIO [facility] Start: 01-11-1960 Hepatitis C antibody, confirmatory test DILATED RETINAL EXAM [facility] Start: 01-11-1956 PNEUMOCOCCAL: 65+ (1 - PCV) PNEUMOCOCCAL: 65+ (1 - PCV) [facility] Start: 1955 COVID-19 VACCINE (#1) COVID-19 VACCINE (#1) [facility] Start: 1955 COVID-19 VACCINE (1) COVID-19 VACCINE (1) [facility] Start: 1950 COVID-19 VACCINE (#1) COVID-19 VACCINE (#1) [facility] End: 10-18-2021 Screening digital breast tomosynthesis [facility] Work Phone: Immunizations Immunization Date Immunization Notes Care Provider Fa cility 06-27-2018 influenza, high dose seasonal, preservative-free Ag Hurst MD Work Phone: [facility] 02-07-2016 influenza, high dose seasonal, preservative-free Ag Hurst MD Work Phone: [facility] 08-21-2012 zoster vaccine, live Ag Hurst MD Work Phone: [facility] 01-01-2011 influenza virus vacc ine, whole virus Ag Hurst MD Work Phone: [facility] 04-11-2010 influenza virus vacc ine, unspecified formulation Ag Hurst MD Work Phone: [facility] 01-03-2009 influenza virus vacc ine, whole virus Ag Hurst MD Work Phone: [facility] 01-22-2007 influenza virus vacc ine, whole virus Ag Hurst MD Work Phone: [facility] 08-31-1999 TD(adult) unspecifie d formulation Ag Hurst MD Work Phone: [facility] Payers Date Payer Category Payer Unknown [facility] [place] [facility] SNP [id number] 2019-Present [phone] [address] [place] [address] O [id number] 2019 Unknown [facility] [id number] 2019-Present [phone] [address] [place] [address] [facility] [id number] 2019 Medicaid [place] [employer] [place] [employer] [id number] 2019-Present [phone] [place] [id number] Medicaid [id number] 2019 Medicaid [place] [employer] [place] [employer] [id number] 2019-Present [phone] [address] [place] [phone] Medicaid [id number] Social History Date Type Detail Facility Start: 01-16-2018 End: 10-03-2018 Tobacco smoking status NHIS Ex-smoker [facility] Start: 1967 End: 10-03-2016 History of tobacco use Current smoker [facility] Start: 1967 End: 10-03-2016 History of tobacco use Cigarette Smoker [facility] Start: 01-16-2018 End: 10-03-2018 Cigarettes smoked current (pack per day) - Reported 1 [facility] Start: 01-16-2018 End: 10-03-2018 Tobacco use and exposure Smokeless tobacco non-user [facility] Start: 07-28-2020 Alcohol intake Current non-dr utility locator of alcohol (finding) [facility] Start: 08-14-2018 History SDOH Alcohol Frequency 1 [facility] Start: 08-14-2018 History SDOH Social Connections Phone 3 [facility] Start: 08-14-2018 History SDOH Social Connections Get Together 2 [facility] Start: 08-14-2018 History SDOH Social Connections Living 4 [facility] Start: 08-14-2018 History SDOH Physica l Activity DPW 7 [facility] Start: 08-14-2018 History SDOH Physica l Activity MPS 6 [facility] Start: 10-03-2018 Tobacco Comment Years of ETS f rom mother in childhood home and spouse in marital home. [facility] Start: 1950 Sex Assigned At Not on file [facility] Tobacco smoking stat [facility] Tobacco smoking consumption unknown [facility] Work Phone: Clinical Notes 12-06-2018 to 06-25-2022 Telephone Encounter - Elizabeth Ross - 06/25/2022 2:03 PM EDTTelephone Encounter - Jenny Cavazos Pss - 05/28/2022 2:38 PM ESTTelephone Encounter - Elizabeth Ross - 04/19/2022 5:17 PM EST Note Date & Type Note Facility 06-25-2022 Miscellaneous Notes Received lab results 06/24/22 from [facility], [facility] requesting review if pt needs any more labs. Placed in provider's inbox for review. Route to MA scanning/fax documented in this encounter [facility] 05-28-2022 Miscellaneous Notes Silvia has chosen to use an attending/ PCP doctor at her current living situation. She will be removed from Dr. Hurst's care. documented in this encounter [facility] 04-19-2022 Miscellaneous Notes Called [facility] and spoke with [address] [place] [address] nurse Megan, informed of Ronit Lou recommendation. No further action needed at this time. She may continue the medication if tolerating. Stop and notify us if any adverse effects. Ronit Lou APRN.LACY [facility] called [facility] Doctors okay for Silvia to keep taking her medication Cefdinir. She is allergic to Keflex but has had no reaction to the two doses she's had already. Please call [phone] and ask for the [address] nurse. documented in this encounter [facility] 04-19-2022 Miscellaneous Notes Fax sent Received request for orders for suspected ear infection/ URI from [facility]. Placed in provider's inbox for review. Route to [place] fax documented in this encounter [facility] 03-27-2022 Miscellaneous Notes Received 03/26/2022 from [facility]. Placed in provider's inbox for review. Route to [place] for review. documented in this encounter [facility] 02-02-2022 Miscellaneous Notes Received 02/02/2022 from [facility]. Placed in provider's inbox for review. Route to [place] for faxing Patient complaining of ear pain. Nurse noted redness and swelling Doxycycline 100 mg bid x 10 days ordered. documented in this encounter [facility] 11-15-2021 Miscellaneous Notes Received prescription request for therapeutic shoes from [facility]. Placed in provider's inbox for review. Orders have been faxed. documented in this encounter [facility] 10-04-2021 Note Patient Outreach (FA MDNA) SILVIA WILSON ([id number]) 1950 F Date Time Provider Department 10/04/21 [...] tablet daily. Meds Comments as of 10/09/2018: 9-58-14-Patient need to pickle processor pulmicort and prednisone. Using prednisone that was [...] controlled, without c*09/13/2018 (more content not included)... [facility] 10-04-2021 Note HNO ID: [id number] Author: Shital Hudson Service: ? Author Type: [...] Postponed Postponed Date 10/02/2021 10/04/2021 Shital Hudson [facility] 10-04-2021 Note HNO ID: [id number] Author: Shital Hudson Service: ? Author Type: ? Type: Progress Notes Filed: 10/04/2021 9:42 AM Note Text: Care Gap Reviewed: Follow-up appointment Phone call placed to patient. Pt identified by name and : NO Outreach Outcome/Action: Unable to reach patient: Phone number not valid / voicemail full If patient deferred or declined to schedule appointment, please indicate the reason(s): Other NA Shital Hudson [facility] 10-04-2021 History of Present illness Narrative [...] reason(s): Carly Hudson documented in this encounter [facility] 10-03-2021 Note HNO ID: [id number] Author: Shital Hudson Service: ? Author Type: [...] Health Postponed Postponed Date 10/02/2021 Shital Hudson [facility] 10-03-2021 Note HNO ID: [id number] Author: Shital Hudson Service: ? Author Type: ? Type: Progress Notes Filed: 11/03/2021 3:01 AM Note Text: Care Gap Reviewed: Follow-up appointment Phone call placed to patient. Pt identified by name and : NO Outreach Outcome/Action: Unable to reach patient: Phone number not valid / voicemail full If patient deferred or declined to schedule appointment, please indicate the reason(s): Other [place] [facility] 10-03-2021 Note Patient Outreach (FA [place]) SLIVIA WILSON ([id number]) 1950 F Date Time Provider Department 10/03/21 [...] tablet daily. Meds Comments as of 10/09/2018: 8-44-24-Patient need to pickle processor pulmicort and prednisone. Using prednisone that was [...] on chronic respiratory (more content not included)... [facility] 09-29-2021 Note Patient Outreach (FA MDNA) SILVIA WILSON ([id number]) 1950 F Date Time Provider Department 09/29/21 [...] tablet daily. Meds Comments as of 10/09/2018: 9-01-61-Patient need to pickle processor pulmicort and prednisone. Using prednisone that was [...] 09/13/2018 12/18/2018 Ob (more content not included)... [facility] 09-29-2021 Note HNO ID: [id number] Author: Shital Hudson Service: ? Author Type: [...] None No flowsheet data found. Shital Hudson [facility] 09-29-2021 Note HNO ID: [id number] Author: Shital Hudson Service: ? Author Type: [...] indicate the reason(s): Other NA Shital Hudson [facility] 08-29-2021 Miscellaneous Notes Gradual Dose reduction request reviewed and signed by PCP faxed back to [facility]. documented in this encounter [facility] 08-25-2021 Miscellaneous Notes Received 08/25/2021 from [facility]. Placed in provider's inbox for review. Route to [place] for faxing [phone] 125 mg BID Duloxetine 60 mg daily Trazodone 75 mg HS documented in this encounter [facility] 08-14-2021 Miscellaneous Notes Received labs from [facility]. Placed in provider's inbox for review. Route to MA scanning. documented in this encounter [facility] 07-29-2020 Note HNO ID: [id number] Author: Toña (Rn) EVERETTE Burkett Service: Care Management Author Type: Registered Nurse Type: Care Mgt Progress Note Filed: 07/29/2020 2:24 PM Note Text: CARE MANAGEMENT DISCHARGE NOTE SERVICE DATE: 07/29/2020 SERVICE TIME: 2:16 PM LOS: 0 days Admission Date: 07/28/2020 DISCHARGE ARRANGEMENT (list agency and phone number) Return to [facility] Provider Name: [facility] CAREGIVER ASSESSMENT: D/C to SNF HANDOFF COMMUNICATION: Ag Hurst MD TRANSPORTATION ARRANGEMENTS: [facility] Ambulance to pickle processor 07/29/2020 with O2 at 2L cont. ADDITIONAL CONTACT RESOURCES: Vmx left for Pts' Reshma Paz Wilson re D/C today. SIGNATURE: Toña Burkett, CARLOS MANUEL,BSN, ACM PATIENT NAME: Silvia Wilson DATE: July 29, 2020 TIME: 2:16 PM PAGER/CONTACT #: [phone] [facility] 07-29-2020 Note HNO ID: [id number] Author: Yovani Toledo Service: Cardiovascular Disease Author [...] TROPT <0.010 SIGNATURE: Yovani Toledo MD CELL; [phone] DATE: July 29, 2020 TIME: 10:23 AM [facility] 07-28-2020 Note HNO ID: [id number] Author: Kalani Gutierrez (Sw) Service: Care Management Author Type: Solar System Designer Type: Care Mgt Initial Assessment Filed: 07/28/2020 1:28 PM Note Text: CARE MANAGEMENT: ASSESSMENT AND DISCHARGE PLAN SERVICE DATE: July 28, 2020 SERVICE TIME: 1:15 PM PRIMARY CARE PHYSICIAN: Ag Hurst MD - unconfirmed at this time ADMISSION STATUS: Emergency Needs Prior to Discharge: To Be Determined;Discharge Transportation MEDICAL: [employer] H[employer] 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 Last discharge within 30 days: No Advance Directive: Current Advance Directive: Health Care Power of Key Holder In Chart: No Welfare Eligibility Worker Attempted to Assist with AD Completion: Yes [...] Other: See Comment (needed equipment provided by [facility] at this time) Has the Patient Been in a Fpc Facility in the Past 30 days?: No (per ene/Jennifer, pt is group home resident, 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) SOCIAL: Living Arrangements: Nursing Facility Lives With: N/A Patient from Facility Facility Information: [facility] Financial Resources: Retired Primary Contact: Extended Emergency Contact Information Primary Emergency Contact: Brandi Wilson Address: [address] [place] [address] Mobile Relation: Daughter Secondary Emergency Contact: Jennifer Wilson Address: [address] [place] [address] Mobile Relation: Daughter Supportive Patient Contact:: Yes Contact Resources: Family Family Name/Phone: Desiree [phone] Caregiver AssessmentCaregiver is ready, willing and able to meet the patient's needs as recommended by the inter-professional team:: Yes Does the patient have an acute stroke diagnosis, or has the patient had a stroke during this admission?: No Patient's transition needs and plan for meeting these needs: return to [facility] where needs are met Patient's perception of [...] Completely I feel financially burdened by my xfy-xc-rhvrld expenses for my prescription medication:: 0 - [...] Information: dx bipolar FREEDOM OF CHOICE EXPLAINED: [place] of Choice Given: Yes Level of Care Discussed: Fpc Facility (per Jennifer, pt is LTC resident and will return to [facility]) POTENTIAL TRANSITION PLANS Fpc Facility/Intermediate Care Facility Assessment completed with pt's michaelr/Jennifer via phone, introduced self and role of case management. Per chart, Jennifer was POA; however, Jennifer states she is not POA, states dtr/Aida is POA and provided Aida's contact information as above. Jennifer does confirm pt is LTC resident at [facility] and will return at d/c, [...] 28, 2020 TIME: 1:24 PM PAGER/CONTACT #: [phone] [facility] documented as of this encounter (statuses as of 08/14/2021) [facility] History of Past illness Narrative* Problem Noted [...] of this encounter (statuses as of 08/25/2021) [facility] History of Past illness Narrative* Problem Noted [...] of this encounter (statuses as of 08/29/2021) [facility] History of Past illness Narrative* Problem Noted [...] of this encounter (statuses as of 10/04/2021) [facility] History of Past illness Narrative* Problem Noted [...] of this encounter (statuses as of 11/15/2021) [facility] History of Past illness Narrative* Problem Noted [...] of this encounter (statuses as of 02/02/2022) [facility] History of Past illness Narrative* Problem Noted [...] of this encounter (statuses as of 03/27/2022) [facility] History of Past illness Narrative* Problem Noted [...] of this encounter (statuses as of 04/19/2022) [facility] History of Past illness Narrative* Problem Noted [...] of this encounter (statuses as of 04/20/2022) [facility] History of Past illness Narrative* Problem Noted [...] of this encounter (statuses as of 05/29/2022) [facility] History of Past illness Narrative* Problem Noted [...] of this encounter (statuses as of 06/25/2022) [facility] Summary Purpose Family History No Family History Records FoundNo Family History Records FoundNo Family History Records FoundNo Family History Records FoundNo Family History Records Found Advance Directives No Advanced Directives Records FoundDocuments on File Type Date Recorded Patient Warehouse Production Worker Expl anation Advance Directive(s) 07/28/2020 7:56 AM [...] Course Note Patient: WILSON, SILVIA MRN: [id number] Age: 68 years Sex: Female : 1950 Associated Diagnoses: None Author: YOVANI TOLEDO MD DISCHARGE SUMMARY DOA: 11/26/2018 DOD: 11/27/2018 FINAL DIAGNOSIS: Chest pain: Ruled out for [place] Normal coronaries OTHER DIAGNOSIS: Hypertension Diabetes Hyperlipidemia Moderate obesity PROCEDURES: Left heart cath LABS: Reviewed HOSPITAL COURSE: Uneventful. No chest pain or dyspnea. MEDICATIONS: Reviewed PLAN: Home today FOLLOW UP: Two weeks Additional Source Comments INFORMATION SOURCE (unrecogn ized section and content) DATE CREATED AUTHOR AUTHOR'S ORGANIZ ATION 06/10/2020 [facility] DATE CREATED AUTHOR AUTHOR'S ORGANIZ ATION 07/07/2021 [facility] DATE CREATED AUTHOR AUTHOR'S ORGANIZ ATION 10/20/2021 [facility] DATE CREATED AUTHOR AUTHOR'S ORGANIZ ATION 06/29/2022 [facility] Source Comments (unrecognize d section and content) In the event this informatio n is protected by the Federal Confidentiality of Alcohol and Drug Abuse Patient Records regulations: The Federal rules restrict any use of the information to criminally investigate or prosecute any alcohol or drug abuse patient.[facility] CenterIn the event this information is protected by [...] or prosecute any alcohol or drug abuse patient.[facility] CenterIn the event this information is protected by the Federal Confidentiality of Alcohol and Drug Abuse Patient Records regulations: The Federal rules restrict any use of the information to criminally investigate or prosecute any alcohol or drug abuse patient.[facility] CenterIn the event this information is protected by the Federal Confidentiality of Alcohol and Drug Abuse Patient Records regulations: The Federal rules restrict any use of the information to criminally investigate or prosecute any alcohol or drug abuse patient.[facility] CenterIn the event this information is protected by the Federal Confidentiality of Alcohol and Drug Abuse Patient Records regulations: The Federal rules restrict any use of the information to criminally investigate or prosecute any alcohol or drug abuse patient.[facility] CenterIn the event this information is protected by the Federal Confidentiality of Alcohol and Drug Abuse Patient Records regulations: The Federal rules restrict any use of the information to criminally investigate or prosecute any alcohol or drug abuse patient.[facility] CenterIn the event this information is protected by the Federal Confidentiality of Alcohol and Drug Abuse Patient Records regulations: The Federal rules restrict any use of the information to criminally investigate or prosecute any alcohol or drug abuse patient.[facility] CenterIn the event this information is protected by the Federal Confidentiality of Alcohol and Drug Abuse Patient Records regulations: The Federal rules restrict any use of the information to criminally investigate or prosecute any alcohol or drug abuse patient.[facility] CenterIn the event this information is protected by the Federal Confidentiality of Alcohol and Drug Abuse Patient Records regulations: The Federal rules restrict any use of the information to criminally investigate or prosecute any alcohol or drug abuse patient.[facility] CenterIn the event this information is protected by the Federal Confidentiality of Alcohol and Drug Abuse Patient Records regulations: The Federal rules restrict any use of the information to criminally investigate or prosecute any alcohol or drug abuse patient.[facility] Reason for Visit (unrecogniz ed section and [...] Medical Records Yue Abdi lab results from [facility] 03/26/2022 Reason Comments Orders Altercare Reason Comments Patient Question Reason Comments FYI-No Action Needed Reason Comments Outside Lab Results [facility], Altercare Care Teams (unrecognized sec tion and content) Toter Relationship Specialty Start Date End Date Ag Hurst MD [address] [place] [address] [address] [place], [place] [address] PCP - General Family Medicine 07/28/20 Colin Duvall MD [address] [address] [address] [place], [place] [id number] Referring Internal Medicine 12/05/18 Colin Duvall MD [address] [address] [address] [place], [place] [id number] Home Care Provider Internal Medicine 12/05/18 Apple Marino, [address] [place] [address] [facility] 12/05/18 Toter Relationship Specialty Start Date End Date Ag Hurst MD [address] [facility] [address] [place], [place] [id number] PCP - General Family Medicine 07/28/20 Colin Duvall MD [address] [facility] [address] [place] [address] Referring Internal Medicine 12/05/18 Colin Duvall MD [address] [facility] [address] [place] [address] Home Care Provider Internal Medicine 12/05/18 Apple Marino, RN [address] [place] [address] [facility] Acute [facility] 12/05/18 Toter Relationship Specialty Start Date End Date Ag Hurst MD [address] [facility] [place] [address] PCP - General Family Medicine 07/28/20 Colin Duvall MD [address] [facility] [address] [place] [address] Referring Internal Medicine 12/05/18 Colin Duvall MD [address] [facility] [address] [place] [address] Home Care Provider Internal Medicine 12/05/18 Apple Marino, RN [address] [place] [address] [facility] 12/05/18 Toter Relationship Specialty Start Date End Date Colin Duvall MD [address] [facility] [address] [place] [address] Referring Internal Medicine 12/05/18 Colin Duvall MD [address] [facility] [address] [place] [address] Home Care Provider Internal Medicine 12/05/18 Apple Marino, RN [address] [place] [address] [facility] 12/05/18 FOR RECORDS PERTAINING [...] BE BASED ON THE PRIMARY CLINICAL RECORDS. [facility] [employer] provides no warranty or guarantee of the accuracy or completeness of information in this document.
[2023-06-24 09:23] LABS: Hematocrit 39.3 % (37-47); Hemoglobin 11.5 g/dL (12.0-15.0); Mean Corp Hgb Conc 29.3 g/dL (32-36); Mean Corpuscular Hgb 24.3 pg (27.0-32.0); Mean Corpuscular Volume 83.1 fL (81-99); Mean Platelet Vol. 9.7 fl (6.2-12.0); POSITIVE COUNT YES; POSITIVE MORPHOLOGY YES; Platelet Count 293 K/mm3 (150-450); RBC Distribution Width CV 15.9 % (11.6-14.6); RBC Distribution Width SD 48.3 fl (35.1-43.9); Red Blood Count 4.73 M/mm3 (4.2-5.4); White Blood Count 13.5 K/mm3 (4.4-11.0)
[2023-06-24 09:39] LABS: Differential Indicated MANUAL DIFF
[2023-06-24 10:22] LABS: ALB/GLOB Ratio 0.5 RATIO (0.9-2.4); AST(SGOT) 16 U/L (15-37); Alanine Aminotransfer ALT/SGPT 23 U/L (13-56); Albumin, Serum 2.2 g/dL (3.2-5.0); Alkaline Phosphatase 93 U/L (45-117); Anion Gap 5 (5-15); BUN 21 mg/dL (7-18); BUN/Creat Ratio 30.9 RATIO (10-20); Calcium,Total 9.4 mg/dL (8.5-10.1); Chloride 104 mmol/L (98-107); Creatinine, Serum 0.68 mg/dL (0.55-1.02); EST Glomerular Filtration Rate 90 mL/min (>60); Est Glom Filt Rate - Afr Amer 109 mL/min (>60); Globulin 4.4 g/dL (2.2-4.2); Glucose 76 mg/dL (74-106); Potassium 3.9 mmol/L (3.5-5.1); Protein, Total 6.6 g/dL (6.4-8.2); Sodium Level 142 mmol/L (136-145)
[2023-06-24 10:53] LABS: Neutrophil-Segmented 69 % (47-70); Total Cells Counted 100 (MANUAL DIFF)
[2023-06-24 10:54] LABS: Lymphocyte 22 % (19-41); Monocyte 6 % (0-10); Myelocyte 3 % (0-0); Platelet Estimate ADEQUATE (ADEQ); Red Cell Morphology NORM C+C NORMAL (NORM C&C)
[2023-06-24 11:10] LABS: Absolute Lymphocyte Count 2.97 X10^3/uL (0.83-4.51); Absolute Neutrophil Count 9.3 X10^3/uL (2.0-7.7)
[2023-06-27 09:02] LABS: Pathologist Review Reviewed
== END ==
LOC: OLS.ACW100 05:00
PROVIDERS: PCP Family Medicine; Visit Provider Family Medicine
DX: J44.1 Chronic obstructive pulmonary disease with (acute) exacerbation (principal); E11.9 Type 2 diabetes mellitus without complications
CPT/HCPCS: 36415; 80053; 85025

== ENCOUNTER → 2023-06-25 | Outpatient (REF) | payer MEDICARE, MEDICAID, SELFPAY ==
[2023-06-25 09:16] LABS: Hematocrit 41.2 % (37-47); Hemoglobin 11.9 g/dL (12.0-15.0); Mean Corp Hgb Conc 28.9 g/dL (32-36); Mean Corpuscular Hgb 23.9 pg (27.0-32.0); Mean Corpuscular Volume 82.9 fL (81-99); Mean Platelet Vol. 9.7 fl (6.2-12.0); Platelet Count 321 K/mm3 (150-450); RBC Distribution Width CV 16.3 % (11.6-14.6); RBC Distribution Width SD 48.8 fl (35.1-43.9); Red Blood Count 4.97 M/mm3 (4.2-5.4); White Blood Count 13.4 K/mm3 (4.4-11.0)
[2023-06-25 09:29] LABS: ALB/GLOB Ratio 0.5 RATIO (0.9-2.4); AST(SGOT) 19 U/L (15-37); Alanine Aminotransfer ALT/SGPT 23 U/L (13-56); Albumin, Serum 2.4 g/dL (3.2-5.0); Alkaline Phosphatase 89 U/L (45-117); Anion Gap 3 (5-15); BUN 21 mg/dL (7-18); BUN/Creat Ratio 26.1 RATIO (10-20); Calcium,Total 9.1 mg/dL (8.5-10.1); Chloride 104 mmol/L (98-107); EST Glomerular Filtration Rate 74 mL/min (>60); Est Glom Filt Rate - Afr Amer 90 mL/min (>60); Globulin 4.6 g/dL (2.2-4.2); Glucose 70 mg/dL (74-106); Potassium 4.2 mmol/L (3.5-5.1); Sodium Level 142 mmol/L (136-145)
[2023-06-25 09:33] LABS: Hemoglobin A1c 6.1 % (3.8-5.6)
[2023-06-25 09:38] LABS: Valproic Acid (Depakene) Level < 3 ug/mL (50-100)
[2023-06-25 09:56] LABS: Vitamin B12 367 pg/mL (211-911); Vitamin D,25 Hydroxy 41.2 ng/mL
== END ==
LOC: OLS.ACW100 05:00
PROVIDERS: PCP Family Medicine; Visit Provider Family Medicine
DX: E11.9 Type 2 diabetes mellitus without complications (principal); J44.1 Chronic obstructive pulmonary disease with (acute) exacerbation; J96.22 Acute and chronic respiratory failure with hypercapnia; E55.9 Vitamin D deficiency, unspecified
CPT/HCPCS: 36415; 80053; 80164; 82306; 82607; 83036; 85027

== ENCOUNTER → 2023-07-09 | Outpatient (REF) | payer MEDICARE, MEDICAID, SELFPAY ==
[2023-07-09 09:32] LABS: Hematocrit 42.8 % (37-47); Hemoglobin 12.2 g/dL (12.0-15.0); Mean Corp Hgb Conc 28.5 g/dL (32-36); Mean Corpuscular Hgb 24.1 pg (27.0-32.0); Mean Corpuscular Volume 84.4 fL (81-99); Mean Platelet Vol. 9.6 fl (6.2-12.0); Platelet Count 210 K/mm3 (150-450); RBC Distribution Width CV 16.5 % (11.6-14.6); RBC Distribution Width SD 50.2 fl (35.1-43.9); Red Blood Count 5.07 M/mm3 (4.2-5.4); White Blood Count 5.8 K/mm3 (4.4-11.0)
[2023-07-09 09:48] LABS: Vitamin D,25 Hydroxy 42.2 ng/mL
[2023-07-09 09:57] LABS: ALB/GLOB Ratio 0.6 RATIO (0.9-2.4); AST(SGOT) 11 U/L (15-37); Alanine Aminotransfer ALT/SGPT 18 U/L (13-56); Albumin, Serum 2.6 g/dL (3.2-5.0); Alkaline Phosphatase 93 U/L (45-117); Anion Gap 2 (5-15); BUN 12 mg/dL (7-18); Calcium,Total 8.9 mg/dL (8.5-10.1); Chloride 104 mmol/L (98-107); Cholesterol 168 mg/dL (200); Creatinine, Serum 0.63 mg/dL (0.55-1.02); EST Glomerular Filtration Rate 98 mL/min (>60); Est Glom Filt Rate - Afr Amer 118 mL/min (>60); Globulin 4.1 g/dL (2.2-4.2); Glucose 96 mg/dL (74-106); High Density Lipoprotein 31 mg/dL; Potassium 4.3 mmol/L (3.5-5.1); Protein, Total 6.7 g/dL (6.4-8.2); Sodium Level 142 mmol/L (136-145); Thyroid Stim Hormone (TSH) 3.67 uIU/mL (0.358-3.74); Triglycerides 167 mg/dL; Very Low Density Lipoprotein 33 mg/dL (5-40)
[2023-07-09 10:08] LABS: Hemoglobin A1c 6.3 % (3.8-5.6)
== END ==
LOC: OLS.ACW100 05:00
PROVIDERS: PCP Family Medicine; Visit Provider Family Medicine
DX: J18.9 Pneumonia, unspecified organism (principal); J44.1 Chronic obstructive pulmonary disease with (acute) exacerbation; R91.8 Other nonspecific abnormal finding of lung field; Z79.899 Other long term (current) drug therapy; E55.9 Vitamin D deficiency, unspecified
CPT/HCPCS: 36415; 80053; 80061; 82306; 83036; 84443; 85027